=== PATIENT | female | born 1960 | race Caucasian/White ===

== ENCOUNTER 2018-08-17 08:43 | Emergency (ER) | payer OTHER ==
[~2018-08-17] VITALS: Ht 162.6 cm; Wt 79.2 kg
[2018-08-17 08:44] VITALS: BP 101/57
--- NOTE | 2018-08-17 09:00 | NUR ---
PT AMB WITH WALKER TO BED 11.
--- NOTE | 2018-08-17 09:13 | NUR ---
PATIENT PRESENTS TO ED WITH c/o hacking cough with sob and intermittent fever x 1 wk hx copd admits has stopped smoking recently---ambulatory with walker full clear speech , no tripoding .. DENIES N/V/D; SKIN IS PINK/WARM/DRY; AAOX4 WITH EVEN AND STEADY GAIT; LUNGS CLEAR BL; HR EVEN AND REGULAR; ; PATIENT STATES PAIN OF 8/10 AT THIS TIME; VSS; PATIENT POSITIONED FOR COMFORT; HOB ELEVATED; BEDRAILS UP X2; BED DOWN. ER MD MADE AWARE OF PT STATUS.
--- NOTE | 2018-08-17 09:20 | NUR ---
Patient being evaluated by physician at bedside.
--- NOTE | 2018-08-17 09:31 | NUR ---
pt to radiology via
[2018-08-17 10:22] VITALS: BP 133/68
--- NOTE | 2018-08-17 10:22 | NUR ---
Patient discharged with v/s stable. Written and verbal after care instructions given and explained. Patient alert, oriented and verbalized understanding of instructions. Ambulatory with steady gait. All questions addressed prior to discharge. ID band removed. Patient advised to follow up with PMD. Rx of augmentin/prednisone given. Patient educated on indication of medication including possible reaction and side effects. Opportunity to ask questions provided and answered.
== END 2018-08-17 10:22 | disposition home or self-care (01) ==
LOC: MED 08:43
DX: J40 Bronchitis, not specified as acute or chronic (principal); J44.9 Chronic obstructive pulmonary disease, unspecified; G20 Parkinson's disease; F17.210 Nicotine dependence, cigarettes, uncomplicated; Z86.73 Personal history of transient ischemic attack (TIA), and cerebral infarction without residual deficits
CPT/HCPCS: 71046; 81002; 81025; 99283

== ENCOUNTER 2018-10-16 22:41 | Inpatient (IN) | payer OTHER ==
[~2018-10-16] VITALS: Ht 160 cm; Wt 78.9 kg
[2018-10-16 22:41] VITALS: BP 116/61
--- NOTE | 2018-10-16 22:41 | NUR ---
PATIENT BIB BLS TO ER BED 11.
--- NOTE | 2018-10-16 22:44 | NUR ---
BIBA BLS TO ER BED 11
--- NOTE | 2018-10-16 22:45 | NUR ---
PT BIBA TO ERWITH C/O NEED OF 02 DUE TO RUNNING OUT IN HER TANKS. [facility]. PT ALSO STATED THAT SHE FEELS SOME CHEST PAIN. PT IS SAT 96 PERCENT ON RA. PT IS A/OX4. ER MD MADE AWARE OF STATUS. SAFETY MEASURES IN PLACE, BED RAILS UP X2.
--- NOTE | 2018-10-16 22:48 | NUR ---
RT AT BEDSIDE
[2018-10-16] MEDS ORDERED: ALBUTEROL SULFATE/IPRATROPIU 3 ML SOL IH ONE (23:15)
[2018-10-16 23:38] LABS: BASOPHILS % (AUTO) 0.4 % (0.0-2.0); EOSINOPHILS # (AUTO) 0.1 K/uL (0-0.4); EOSINOPHILS % (AUTO) 1.5 % (0.0-4.0); HEMATOCRIT 38.6 % (36-48); HEMOGLOBIN 13.4 g/dL (12.0-16.0); LYMPHOCYTES # (AUTO) 3.5 K/uL (2.5-16.5); LYMPHOCYTES % (AUTO) 57.4 % (20.5-51.1); MEAN CORPUSCULAR HEMOGLOBIN 34 pg (27-31); MEAN CORPUSCULAR HGB CONC 35 g/dL (33-37); MEAN CORPUSCULAR VOLUME 98.6 fL (80-94); MONOCYTES # (AUTO) 0.6 K/uL (0.8-1.0); MONOCYTES % (AUTO) 10.5 % (1.7-9.3); NEUTROPHILS # (AUTO) 1.9 K/uL (1.8-7.7); NEUTROPHILS % (AUTO) 30.2 % (42.2-75.2); PLATELET COUNT (AUTO) 239 K/uL (140-450); RED BLOOD CELL COUNT(AUTO) 3.91 MIL/uL (4.20-5.40); RED CELL DISTRIBUTION WIDTH 12.5 % (11.6-13.7); WHITE BLOOD COUNT (AUTO) 6.2 K/uL (4.8-10.8)
[2018-10-16] MEDS ORDERED: ASPIRIN 81 MG TAB.CHEW PO ONE (23:55)
[2018-10-16 23:56] LABS: ANION GAP 9.8 (8-16); CARBON DIOXIDE 30.8 mmol/L (21-32); CREATININE 0.8 mg/dL (0.6-1.3); POTASSIUM 3.6 mmol/L (3.5-5.1)
[2018-10-17 00:01] LABS: ALBUMIN 3.5 g/dL (3.4-5.0); TOTAL BILIRUBIN 0.9 mg/dL (0.0-1.0)
[2018-10-17] MEDS ORDERED: ZOLPIDEM 5 MG TAB PO PRN (01:10)
[2018-10-17] MEDS ORDERED: HYDROcodone/APAP 5/325 MG 1 TAB TAB PO PRN (01:10)
[2018-10-17] MEDS ORDERED: ONDANSETRON 4 MG/2 ML VIAL IM/IVP PRN (01:10)
[2018-10-17] MEDS ORDERED: MORPHINE SULFATE 2 MG/ML SYR IVP PRN ×2 (01:10→03:30)
[2018-10-17] MEDS ORDERED: DOCUSATE SODIUM 100 MG GELCAP PO PRN (01:10)
[2018-10-17] MEDS ORDERED: ACETAMINOPHEN 325 MG TAB PO PRN (01:10)
[2018-10-17] MEDS ORDERED: LORazepam 2 MG/ML VIAL IM/IVP PRN (01:10)
[2018-10-17] MEDS ORDERED: ALBUTEROL SULFATE/IPRATROPIU 3 ML SOL IH PRN (01:15)
[2018-10-17] MEDS ORDERED: NITROGLYCERIN 0.4 MG TAB SL PRN ×2 (01:15→03:40)
[2018-10-17] MEDS ORDERED: [UNRECOGNIZED DRUG - CODE] PO (01:22)
[2018-10-17] MEDS ORDERED: PRON INH (01:22)
[2018-10-17] MEDS ORDERED: PANT40EC PO (01:22)
[2018-10-17] MEDS ORDERED: [UNRECOGNIZED DRUG - CODE] SC (01:22)
[2018-10-17] MEDS ORDERED: [UNRECOGNIZED DRUG - CODE] IM (01:22)
[2018-10-17] MEDS ORDERED: VARE1TAB27 PO (01:22)
[2018-10-17] MEDS ORDERED: ACET-787 PO (01:22)
[2018-10-17] MEDS ORDERED: CYAN100099 IM (01:22)
[2018-10-17] MEDS ORDERED: ATOR20TA PO (01:22)
[2018-10-17] MEDS ORDERED: GABA300C PO (01:22)
[2018-10-17] MEDS ORDERED: OLAN2.5T1 PO (01:22)
[2018-10-17] MEDS ORDERED: DULO60EC PO (01:22)
[2018-10-17] MEDS ORDERED: ALBU0.0912 IH (01:22)
[2018-10-17] MEDS ORDERED: PRAZ1CAP5 PO (01:22)
[2018-10-17] MEDS ORDERED: OLAN15TA1 PO (01:22)
[2018-10-17] MEDS ORDERED: BUDE1AER2 IH (01:22)
[2018-10-17] MEDS ORDERED: [UNRECOGNIZED DRUG - CODE] TP (01:22)
[2018-10-17] MEDS ORDERED: [UNRECOGNIZED DRUG - CODE] PO (01:22)
[2018-10-17] MEDS ORDERED: MIRT15TA PO (01:22)
[2018-10-17] MEDS ORDERED: DIVA500E1 PO (01:22)
[2018-10-17] MEDS ORDERED: ASPI-1677 PO (01:22)
[2018-10-17 01:56] LABS: PROTHROMBIN TIME 9.9 secs (10.8-13.4)
--- NOTE | 2018-10-17 02:00 | NUR ---
Patient will be admitted to care of DR. JESUS. Admited to ICU . Will go to room 5. Belongings list completed. Report to SHERLY BARBOZA.
--- NOTE | 2018-10-17 02:00 | NUR ---
Pt report given to SHERLY BARBOZA IN ICU. Transfer of care at this time.VSS
[2018-10-17 02:06] LABS: PHOSPHORUS 4.1 mg/dL (2.5-4.9); THYROID STIMULATING HORMONE 2.17 uIU/mL (0.34-3.74)
--- NOTE | 2018-10-17 02:20 | NUR ---
PT ARRIVED IN THE UNIT AT 0205 VIA GURNEY FROM ER. VS STABLE. AFEBRILE. PT DENIES ANY PAIN AT THIS TIME. PT COOPERATIVE AND ABLE TO MAKE NEEDS KNOWN. DENIES ANY DISCOMFORT AT THIS TIME. PERRL. PT ANSWERS QUESTIONS APPROPRIATELY. LUNG SOUNDS CLEAR. RECEIVED PT ON OXYGEN AT 3L/MIN VIA NC. PT DENIES ANY DIFFICULTY BREATHING. RESPIRATIONS ARE EVEN AND UNLABORED. S1+S2 HEARD. SR ON MONITOR. PULSES ARE PALPABLE IN ALL EXTREMITIES. DENIES CHEST PAIN. ABDOMEN ROUND, SOFT AND NONDISTENDED. BS ACTIVE IN ALL QUADRANTS. PT STATES CHANGE IN APPETITE RECENTLY. DENIES ANY DIFFICULTY SWALLOWING. PT HAS LEFT SIDED WEAKNESS D/T PREVIOUS CVA. RECEIVED PT WITH LEFT HAND PERIPHERAL IV ACCESS 22G. LINE WAS FLUSHED BUT NO LONGER INTACT. WILL START ANOTHER IV ACCESS. PT STATES SHE HAS HER UPPER DENTURES. NO OTHER BELONGINGS REPORTED BY PT. MRSA SPECIMEN COLLECTED. CALL LIGHT HANDED TO PT AND INSTRUCTED HOW TO USE. HOB KEPT AT 30 DEGREES. BED AT LOWEST POSSIBLE POSITION. ALL SAFETY PRECAUTIONS ARE KEPT IN PLACE. WILL CONTINUE TO MONITOR PT.
--- NOTE | 2018-10-17 02:23 | NUR ---
PT WAS ASKING FOR SOME SNACKS AT THIS TIME AND WAS PROVIDED. PT WAS ABLE TO FINISH THE APPLESAUCE AND ORANGE JUICE. PT WAS VERY COOPERATIVE AND ANSWERS QUESTIONS APPROPRIATELY. WILL CONTINUE TO MONITOR PT.
[2018-10-17] MEDS: NACL 0.9% 1,000 ML IV SCH ×3 (02:30→21:36)
[2018-10-17] MEDS ORDERED: HYDROcodone/APAP 10/325 MG 1 TAB TAB PO PRN (03:05)
[2018-10-17] MEDS ORDERED: SYN.05 PO (03:34)
[2018-10-17] MEDS ORDERED: BUPR-10 PO (03:34)
[2018-10-17] MEDS ORDERED: MIRABULK PO (03:34)
--- NOTE | 2018-10-17 03:48 | NUR ---
PT IS HAVE EKG TAKEN AT BEDSIDE AT THIS TIME
[2018-10-17 04:00] VITALS: BP 99/62
--- NOTE | 2018-10-17 04:55 | NUR ---
NO CHANGE IN PT'S CONDITION AT THIS TIME. DENIES ANY PAIN. SR ON MONITOR. PT DOES NOT APPEAR TO BE EXPERIENCING ANY DISCOMFORT AT THIS TIME. ALL SAFETY PRECAUTIONS ARE IN PLACE AND CALL LIGHT WITHIN REACH.
--- NOTE | 2018-10-17 05:20 | NUR ---
ASSISTED PT TO USE THE URINAL. PT WAS HESITANT DUE TO PREVIOUS EXPERIENCE OF UNSUCCESSFUL USE OF BEDPAN. PT WAS ABLE TO USE THE BEDPAN SUCCESSFULLY AND HAD 500ML URINE OUTPUT THAT IS CLEAR AND YELLOW IN COLOR. NO ABNORMAL ODOR NOTED.
[2018-10-17] MEDS: LEVOTHYROXINE 0.05 MG TAB PO SCH (05:59)
[2018-10-17] MEDS: PANTOPRAZOLE 40 MG TABEC PO SCH (06:00)
[2018-10-17] MEDS: ALBUTEROL SULFATE/IPRATROPIU 3 ML SOL IH SCH ×3 (06:00→18:47)
--- NOTE | 2018-10-17 06:48 | NUR ---
DR. ROSE IN THE UNIT TO SEE PT. UPDATED HIM REGARDING PT'S CONDITION.
--- NOTE | 2018-10-17 07:08 | NUR ---
REPORT GIVEN TO MORNING RN, MONICA, FOR CONTINUITY OF CARE. VS STABLE AT THIS TIME. ENDORSED PT'S UPPER DENTURES.
--- NOTE | 2018-10-17 07:15 | NUR ---
RECEIVED PT FROM PM NURSE, PT SLEEPING BUT AROUSABLE, BEDSIDE MONITOR SHOWS SR-SB. ON O2 NC 3/MIN, NO S/S OF RESPIRATORY DISTRESS NOTED. LING SOUND CLEAR, ABD ROUND, SOFT, DENIES PAIN. LEFT SIDE WEAKNESS NOTED. PER PM NURSE, PM HAD HX CVA. IV TO RIGHT HAND # 22RUNNING NS AT 60 CC/HR. CALL LIGHT IN REACH, WILL CONTINUE TO MONITOR PT. PT ABLE TO MOVE ALL HER EXTREMITIES. DENIES PAIN.
[2018-10-17 07:58] LABS: BASOPHILS % (AUTO) 0.7 % (0.0-2.0); EOSINOPHILS # (AUTO) 0.1 K/uL (0-0.4); EOSINOPHILS % (AUTO) 2.3 % (0.0-4.0); HEMOGLOBIN 12.7 g/dL (12.0-16.0); LYMPHOCYTES % (AUTO) 57.6 % (20.5-51.1); MEAN CORPUSCULAR HEMOGLOBIN 34 pg (27-31); MEAN CORPUSCULAR HGB CONC 34 g/dL (33-37); MEAN CORPUSCULAR VOLUME 98.3 fL (80-94); MONOCYTES # (AUTO) 0.6 K/uL (0.8-1.0); MONOCYTES % (AUTO) 10.7 % (1.7-9.3); NEUTROPHILS # (AUTO) 1.5 K/uL (1.8-7.7); NEUTROPHILS % (AUTO) 28.7 % (42.2-75.2); PLATELET COUNT (AUTO) 232 K/uL (140-450); RED BLOOD CELL COUNT(AUTO) 3.76 MIL/uL (4.20-5.40); RED CELL DISTRIBUTION WIDTH 12.4 % (11.6-13.7); WHITE BLOOD COUNT (AUTO) 5.3 K/uL (4.8-10.8)
[2018-10-17 08:00] VITALS: BP 95/55
--- NOTE | 2018-10-17 08:17 | NUR ---
OFFERED PT BREAKFAST TRAY, PT ATE 35%. PT STATED SHE DOES NOT HAVE A GOOD APPETITE. SHE WILL TAKE A NAP.
[2018-10-17 08:24] LABS: ALBUMIN 3.3 g/dL (3.4-5.0); ANION GAP 11.5 (8-16); CARBON DIOXIDE 28.9 mmol/L (21-32); CHOL/HDL RATIO 2.6 (1-4.5); CREATININE 0.6 mg/dL (0.6-1.3); POTASSIUM 3.4 mmol/L (3.5-5.1); TOTAL BILIRUBIN 0.8 mg/dL (0.0-1.0)
[2018-10-17] MEDS: ASPIRIN 81 MG TAB.CHEW PO SCH (08:51)
[2018-10-17] MEDS: OLANZapine 2.5 MG TAB PO SCH (08:51)
[2018-10-17] MEDS: LISINOPRIL 5 MG TAB PO SCH (08:51)
[2018-10-17] MEDS: POLYETHYLENE GLYCOL 17 GM/PKT PO SCH (08:52)
[2018-10-17] MEDS: METOPROLOL 25 MG TAB PO SCH ×2 (08:53→21:36)
[2018-10-17] MEDS: CALCIUM CARB 600 MG TAB PO SCH (08:53)
[2018-10-17] MEDS: buPROPion 150 MG TABER PO SCH (08:53)
[2018-10-17] MEDS: CHOLECALCIFEROL 1,000 IU TAB PO SCH (08:54)
[2018-10-17] MEDS: DULoxetine 30 MG CAPDR PO SCH (08:54)
[2018-10-17] MEDS: oxyCODONE 5 MG TAB PO SCH ×2 (08:55→21:34)
[2018-10-17] MEDS ORDERED: buPROPion 100 MG TAB PO SCH (09:00)
[2018-10-17] MEDS ORDERED: DIVALPROEX 500 MG TABEC PO SCH (09:00)
[2018-10-17] MEDS ORDERED: NON-FORMULARY ITEM (Calcium Carbonate/Vitamin D3 (Calcium 600 + Vit D3 Tablet) 1 TAB) PO SCH (09:00)
[2018-10-17] MEDS: NICOTINE TRANSD SYS 21 MG/24 HR PATCH TD SCH (09:35)
--- NOTE | 2018-10-17 10:00 | NUR ---
OFFERED PT BEDPAN, PT HAD URINE 250 ML, CLEANED PT . PT TOLERATED WELL. NO SOB.
[2018-10-17] MEDS ORDERED: POTASSIUM CHLORIDE 10 MEQ TABER PO SCH (11:40)
[2018-10-17 12:00] VITALS: BP 97/56
[2018-10-17] MEDS ORDERED: PSYLLIUM 12.2 GM/PKT PO SCH (12:05)
--- NOTE | 2018-10-17 13:26 | NUR ---
PATIENT HAS BEEN SCREENED AND CATEGORIZED MODERATE NUTRITION RISK. PATIENT WILL BE SEEN WITHIN 3-5 DAYS OF ADMISSION. 10/20/18JABIER MONTEIRO MBA, RD
--- NOTE | 2018-10-17 14:30 | NUR ---
assisted pt to use bedside commode. pt had BM.
--- NOTE | 2018-10-17 15:15 | NUR ---
VEGETABLE CUTTER AT BEDSIDE.
[2018-10-17 16:00] VITALS: BP 91/59
--- NOTE | 2018-10-17 17:00 | NUR ---
pt resting in bed. no discomfort or sob noted.
--- NOTE | 2018-10-17 19:25 | NUR ---
report given to pm nurse kaleb. pt will be transferred to 112B by gurinder contreras
--- NOTE | 2018-10-17 19:26 | NUR ---
RECEIVED REPORT FROM DAY SHIFT NURSE MONICA-RN FROM ICU. PT ARRIVED TO UNIT VIA GURNEY. PT AOX4, ON 3L/NC WITH RIGHT HAND #22G. DISCUSSED PLAN OF CARE AND PT VERBALIZED UNDERSTANDING. NO S/S OF RESPIRATORY DISTRESS OR DISCOMFORT NOTED AT THIS TIME. BED IN LOWEST POSITION, BED BREAKS ON, BOTH SIDE RAILS UP AND FALL PRECAUTIONS IN PLACE. BEDSIDE TABLE AND CALL LIGHT ARE WITHIN REACH. WILL CONTINUE TO MONITOR.
[2018-10-17 20:00] VITALS: BP 104/44
[2018-10-17 20:26] LABS: APPEARANCE,URINE CLEAR (CLEAR); BILIRUBIN,URINE NEGATIVE (NEGATIVE); BLOOD, URINE NEGATIVE (NEGATIVE); COLOR,URINE YELLOW (YELLOW); LEUKOCYTE ESTERASE ,URINE NEGATIVE (NEGATIVE); NITRITE, URINE NEGATIVE (NEGATIVE); UGLUCOSE NEGATIVE (NEGATIVE)
[2018-10-17 20:31] LABS: BARBITURATE, URINE NEG. ng/ml (NEG <=200); BENZODIAZEPINE, URINE NEG. ng/mL (NEG <=200); CANNABINOID, URINE NEG. ng/mL (NEG <=50); COCAINE, URINE NEG. ng/mL (NEG <=300); OPIATE, URINE NEG. ng/mL (NEG <=2000); PHENCYCLIDINE SCREEN,URINE NEG. ng/mL (NEG <=25)
[2018-10-17] MEDS: DOCUSATE SODIUM 100 MG GELCAP PO SCH (21:33)
[2018-10-17] MEDS: GABAPENTIN 300 MG CAP PO SCH (21:34)
[2018-10-17] MEDS: MIRTAZAPINE 15 MG TAB PO SCH (21:34)
[2018-10-17] MEDS: OLANZapine 5 MG TAB PO SCH (21:35)
[2018-10-17] MEDS: DIVALPROEX 500 MG TABEC PO SCH (21:35)
[2018-10-17] MEDS: PRAZOSIN 1 MG CAP PO SCH (21:35)
[2018-10-17] MEDS: ATORVASTATIN 20 MG TAB PO SCH (21:36)
--- NOTE | 2018-10-17 21:46 | NUR ---
SCHEDULED MEDICATION GIVEN AND TOLERATED WELL. NO S/S OF RESPIRATORY DISTRESS OR DISCOMFORT NOTED AT THIS TIME. WILL CONTINUE TO MONITOR.
[2018-10-18] VITALS: BP 86/37
--- NOTE | 2018-10-18 | NUR ---
VITAL SIGNS TAKEN AND TOLERATED WELL. NO S/S OF RESPIRATORY DISTRESS OR DISCOMFORT NOTED AT THIS TIME. WILL CONTINUE TO MONITOR.
--- NOTE | 2018-10-18 02:00 | NUR ---
PT CONTINUES TO SLEEP IN BED. NO S/S OF RESPIRATORY DISTRESS OR DISCOMFORT NOTED AT THIS TIME. WILL CONTINUE TO MONITOR.
[2018-10-18 04:00] VITALS: BP 85/50
--- NOTE | 2018-10-18 04:00 | NUR ---
PT CONTINUES TO SLEEP IN BED. NO S/S OF RESPIRATORY DISTRESS OR DISCOMFORT NOTED AT THIS TIME. WILL CONTINUE TO MONITOR.
--- NOTE | 2018-10-18 06:00 | NUR ---
PT CONTINUES TO SLEEP IN BED. NO S/S OF RESPIRATORY DISTRESS OR DISCOMFORT NOTED AT THIS TIME. WILL CONTINUE TO MONITOR.
[2018-10-18] MEDS: PANTOPRAZOLE 40 MG TABEC PO SCH (06:41)
[2018-10-18] MEDS: LEVOTHYROXINE 0.05 MG TAB PO SCH (06:41)
--- NOTE | 2018-10-18 06:41 | NUR ---
SCHEDULED MEDICATION GIVEN AND TOLERATED WELL. NO S/S OF RESPIRATORY DISTRESS OR DISCOMFORT NOTED AT THIS TIME. WILL CONTINUE TO MONITOR.
[2018-10-18] MEDS: ALBUTEROL SULFATE/IPRATROPIU 3 ML SOL IH SCH ×3 (07:05→19:06)
--- NOTE | 2018-10-18 07:24 | NUR ---
ENDORSED PT CARE TO DAY SHIFT NURSE DEONNA FOR CONTINUITY OF CARE.
--- NOTE | 2018-10-18 07:25 | NUR ---
RECEIVED BEDSIDE REPORT FROM JABARI MAGALLON. PATIENT ON TELE MONITOR AND STANDARD PRECAUTIONS IN PLACE. PATIENT ON 3 L O2 VIA NC, NO DISTRESS NOTED. SKIN INTACT. PATIENT AMBULATES WITH ASSIST AND CONTINENT. IV ON R HAND 22 G INFUSING NS AT 60, IV ASYMPTOMATIC PATENT AND INTACT. FALL RISK PROTOCOL IN PLACE AND ASPIRATION PRECAUTIONS. BED IN LOW POSITION, CALL LIGHT WITHIN REACH, SIDE RAILS X2 UP
[2018-10-18 08:00] VITALS: BP 97/36
[2018-10-18] MEDS: METOPROLOL 25 MG TAB PO SCH ×2 (08:30→21:00)
[2018-10-18 08:37] LABS: ANION GAP 7.5 (8-16); CARBON DIOXIDE 31.5 mmol/L (21-32); CREATININE 0.7 mg/dL (0.6-1.3)
[2018-10-18 08:44] LABS: BASOPHILS % (AUTO) 0.8 % (0.0-2.0); EOSINOPHILS # (AUTO) 0.1 K/uL (0-0.4); EOSINOPHILS % (AUTO) 2.4 % (0.0-4.0); HEMATOCRIT 35.8 % (36-48); HEMOGLOBIN 12.3 g/dL (12.0-16.0); LYMPHOCYTES # (AUTO) 3.1 K/uL (2.5-16.5); LYMPHOCYTES % (AUTO) 63.3 % (20.5-51.1); MEAN CORPUSCULAR HEMOGLOBIN 34 pg (27-31); MEAN CORPUSCULAR HGB CONC 34 g/dL (33-37); MONOCYTES # (AUTO) 0.3 K/uL (0.8-1.0); MONOCYTES % (AUTO) 7.2 % (1.7-9.3); NEUTROPHILS # (AUTO) 1.3 K/uL (1.8-7.7); NEUTROPHILS % (AUTO) 26.3 % (42.2-75.2); PLATELET COUNT (AUTO) 208 K/uL (140-450); RED BLOOD CELL COUNT(AUTO) 3.62 MIL/uL (4.20-5.40); RED CELL DISTRIBUTION WIDTH 12.5 % (11.6-13.7); WHITE BLOOD COUNT (AUTO) 4.9 K/uL (4.8-10.8)
[2018-10-18] MEDS: ASPIRIN 81 MG TAB.CHEW PO SCH (08:45)
[2018-10-18] MEDS: CHOLECALCIFEROL 1,000 IU TAB PO SCH (08:47)
[2018-10-18] MEDS: oxyCODONE 5 MG TAB PO SCH ×2 (08:47→20:57)
[2018-10-18] MEDS: CALCIUM CARB 600 MG TAB PO SCH (08:48)
[2018-10-18] MEDS: DOCUSATE SODIUM 100 MG GELCAP PO SCH ×2 (08:48→20:58)
[2018-10-18] MEDS: DULoxetine 30 MG CAPDR PO SCH (08:49)
[2018-10-18] MEDS: DIVALPROEX 500 MG TABEC PO SCH ×3 (08:49→21:10)
[2018-10-18] MEDS: PSYLLIUM 12.2 GM/PKT PO SCH (08:50)
[2018-10-18] MEDS: POLYETHYLENE GLYCOL 17 GM/PKT PO SCH (08:50)
[2018-10-18] MEDS: NICOTINE TRANSD SYS 21 MG/24 HR PATCH TD SCH (08:51)
[2018-10-18] MEDS: buPROPion 150 MG TABER PO SCH (08:51)
[2018-10-18] MEDS: LISINOPRIL 5 MG TAB PO SCH (09:00)
--- NOTE | 2018-10-18 09:01 | NUR ---
ADMINISTERED SCHEDULED MEDS. PATIENT TOLERATED WELL
[2018-10-18] MEDS: OLANZapine 2.5 MG TAB PO SCH (09:16)
--- NOTE | 2018-10-18 10:32 | NUR ---
Teletypewriter Installer Note: I called and spoke with Renate from [facility] . Per Renate, [facility] is in the process of having O2 concentrator deliver to [facility]. She stated patient has sufficient portable O2 tanks to use at [facility], made aware of this. Renate reported patient ambulates with a walker and is self responsible with medical decisions. [facility]'s bulk tank driver is available Thursday-Thursday from mornings-3pm.
--- NOTE | 2018-10-18 11:28 | NUR ---
PATIENT SLEEPING, ON 3 L O2 NC, NO DISTRESS NOTED
--- NOTE | 2018-10-18 13:30 | NUR ---
PATIENT HAVING BREATHING TREATMENT AT THIS TIME
[2018-10-18 13:38] LABS: T4 (THYROXINE) 6.5 ug/dL (4.5-12.0)
[2018-10-18 16:00] VITALS: BP 108/45
--- NOTE | 2018-10-18 16:17 | NUR ---
PATIENT SLEEPING, ON 3 L O2 NC, NO DISTRESS NOTED
--- NOTE | 2018-10-18 17:23 | NUR ---
FRIEND AT BEDSIDE, ON 3 L O2 NC, NO DISTRESS NOTED
--- NOTE | 2018-10-18 18:22 | NUR ---
PATIENT EATING DINNER, ON 3 L 02 NC, NO DISTRESS NOTED
--- NOTE | 2018-10-18 19:10 | NUR ---
BEDSIDE REPORT GIVEN TO JABARI MAGALLON. PATIENT ENDORSED IN STABLE CONDITION
--- NOTE | 2018-10-18 19:11 | NUR ---
RECEIVED REPORT FROM DAY SHIFT NURSE STEWART-JABARI. PT RESTING IN BED. PT AOX4, ON 3L/NC WITH RIGHT HAND #22G. DISCUSSED PLAN OF CARE AND PT VERBALIZED UNDERSTANDING. NO S/S OF RESPIRATORY DISTRESS OR DISCOMFORT NOTED AT THIS TIME. BED IN LOWEST POSITION, BED BREAKS ON, BOTH SIDE RAILS UP AND FALL PRECAUTIONS IN PLACE. BEDSIDE TABLE AND CALL LIGHT ARE WITHIN REACH. WILL CONTINUE TO MONITOR.
[2018-10-18 20:00] VITALS: BP 97/47
--- NOTE | 2018-10-18 20:00 | NUR ---
VITAL SIGNS TAKEN AND TOLERATED WELL. NO S/S OF RESPIRATORY DISTRESS OR DISCOMFORT NOTED AT THIS TIME. WILL CONTINUE TO MONITOR.
[2018-10-18] MEDS: GABAPENTIN 300 MG CAP PO SCH (20:57)
[2018-10-18] MEDS: ATORVASTATIN 20 MG TAB PO SCH (20:58)
[2018-10-18] MEDS: MIRTAZAPINE 15 MG TAB PO SCH (20:58)
[2018-10-18] MEDS: OLANZapine 5 MG TAB PO SCH (20:58)
[2018-10-18] MEDS: PRAZOSIN 1 MG CAP PO SCH (21:00)
--- NOTE | 2018-10-18 21:02 | NUR ---
SCHEDULED MEDICATIONS GIVEN AND TOLERATED WELL. LOPRESSOR AND MINIPRESS WAS NOT GIVEN DUE TO LOW BP- 97/47, HR- 90. NO S/S OF RESPIRATORY DISTRESS OR DISCOMFORT NOTED AT THIS TIME. WILL CONTINUE TO MONITOR.
--- NOTE | 2018-10-18 23:00 | NUR ---
PT SLEEPING IN BED. NO S/S OF RESPIRATORY DISTRESS OR DISCOMFORT NOTED AT THIS TIME. WILL CONTINUE TO MONITOR.
[2018-10-19] VITALS: BP 112/62
--- NOTE | 2018-10-19 | NUR ---
VITAL SIGNS TAKEN AND TOLERATED WELL. NO S/S OF RESPIRATORY DISTRESS OR DISCOMFORT NOTED AT THIS TIME. WILL CONTINUE TO MONITOR.
--- NOTE | 2018-10-19 02:00 | NUR ---
PT CONTINUES TO SLEEP IN BED. NO S/S OF RESPIRATORY DISTRESS OR DISCOMFORT NOTED AT THIS TIME. WILL CONTINUE TO MONITOR.
[2018-10-19] MEDS: NACL 0.9% 1,000 ML IV SCH ×2 (03:08→22:00)
--- NOTE | 2018-10-19 04:00 | NUR ---
PT CONTINUES TO SLEEP IN BED. NO S/S OF RESPIRATORY DISTRESS OR DISCOMFORT NOTED AT THIS TIME. WILL CONTINUE TO MONITOR.
[2018-10-19] MEDS: PANTOPRAZOLE 40 MG TABEC PO SCH (05:53)
[2018-10-19] MEDS: LEVOTHYROXINE 0.05 MG TAB PO SCH (05:53)
--- NOTE | 2018-10-19 05:53 | NUR ---
SCHEDULED MEDICATIONS GIVEN AND TOLERATED WELL. NO S/S OF RESPIRATORY DISTRESS OR DISCOMFORT NOTED AT THIS TIME. WILL CONTINUE TO MONITOR.
[2018-10-19] MEDS: ALBUTEROL SULFATE/IPRATROPIU 3 ML SOL IH SCH ×3 (07:23→19:09)
--- NOTE | 2018-10-19 07:37 | NUR ---
ENDORSED PT CARE TO DAY SHIFT NURSE SANTINO FOR CONTINUITY OF CARE.
--- NOTE | 2018-10-19 07:37 | NUR ---
REPORT RECEIVED FROM NURSE MAGALLON PT ASLEEP, EASILY AROUSABLE TO A/O APPROPRIATE AND ABLE TO COMMUNICATE NEEDS. DENIES PAIN, DENIES SOB, CALL LIGHT AND PERSONAL ITEMS WITHIN REACH, SAFETY MEASURES IN PLACE, NO S/S OF ACUTE DISTRESS AT THIS TIME, WILL CONTINUE TO MONITOR
[2018-10-19 08:00] VITALS: BP 121/63
[2018-10-19 08:56] LABS: BASOPHILS % (AUTO) 0.4 % (0.0-2.0); EOSINOPHILS # (AUTO) 0.1 K/uL (0-0.4); EOSINOPHILS % (AUTO) 1.8 % (0.0-4.0); HEMATOCRIT 35.5 % (36-48); HEMOGLOBIN 12.2 g/dL (12.0-16.0); LYMPHOCYTES # (AUTO) 2.1 K/uL (2.5-16.5); LYMPHOCYTES % (AUTO) 29.7 % (20.5-51.1); MEAN CORPUSCULAR HEMOGLOBIN 34 pg (27-31); MEAN CORPUSCULAR HGB CONC 34 g/dL (33-37); MEAN CORPUSCULAR VOLUME 99.1 fL (80-94); MONOCYTES # (AUTO) 0.6 K/uL (0.8-1.0); MONOCYTES % (AUTO) 8.6 % (1.7-9.3); NEUTROPHILS # (AUTO) 4.3 K/uL (1.8-7.7); NEUTROPHILS % (AUTO) 59.5 % (42.2-75.2); PLATELET COUNT (AUTO) 218 K/uL (140-450); RED BLOOD CELL COUNT(AUTO) 3.58 MIL/uL (4.20-5.40); RED CELL DISTRIBUTION WIDTH 12.6 % (11.6-13.7); WHITE BLOOD COUNT (AUTO) 7.2 K/uL (4.8-10.8)
[2018-10-19] MEDS: PSYLLIUM 12.2 GM/PKT PO SCH ×2 (09:00→09:36)
[2018-10-19] MEDS: buPROPion 150 MG TABER PO SCH ×2 (09:00→09:37)
[2018-10-19] MEDS: CALCIUM CARB 600 MG TAB PO SCH (09:34)
[2018-10-19] MEDS: ASPIRIN 81 MG TAB.CHEW PO SCH (09:34)
[2018-10-19] MEDS: DOCUSATE SODIUM 100 MG GELCAP PO SCH ×2 (09:35→21:30)
[2018-10-19] MEDS: oxyCODONE 5 MG TAB PO SCH ×2 (09:36→21:00)
[2018-10-19] MEDS: METOPROLOL 25 MG TAB PO SCH ×2 (09:36→21:00)
[2018-10-19] MEDS: POLYETHYLENE GLYCOL 17 GM/PKT PO SCH (09:36)
[2018-10-19] MEDS: LISINOPRIL 5 MG TAB PO SCH (09:37)
[2018-10-19] MEDS: NICOTINE TRANSD SYS 21 MG/24 HR PATCH TD SCH (09:37)
[2018-10-19] MEDS: OLANZapine 2.5 MG TAB PO SCH (09:37)
[2018-10-19] MEDS: CHOLECALCIFEROL 1,000 IU TAB PO SCH (09:37)
[2018-10-19] MEDS: DULoxetine 30 MG CAPDR PO SCH (09:39)
[2018-10-19 09:52] LABS: ANION GAP 11.1 (8-16); CARBON DIOXIDE 29.3 mmol/L (21-32); CREATININE 0.7 mg/dL (0.6-1.3); POTASSIUM 4.4 mmol/L (3.5-5.1)
--- NOTE | 2018-10-19 10:30 | NUR ---
PT REMAINS A/O APPROPRIATE AND ABLE TO COMMUNICATE NEEDS, SPOUSE AT BEDSIDE. DENIES PAIN, DENIES SOB, CALL LIGHT AND PERSONAL ITEMS WITHIN REACH, SAFETY MEASURES IN PLACE, NO S/S OF ACUTE DISTRESS AT THIS TIME, WILL CONTINUE TO MONITOR
--- NOTE | 2018-10-19 13:00 | NUR ---
PT SLEEPING EASILY AROUSABLE BY VERBAL STIMULI TO A/O AND ABLE TO COMMUNICATE NEEDS. PT DENIES PAIN, DENIES SOB, CALL LIGHT AND PERSONAL ITEMS WITHIN REACH, SAFETY MEASURES IN PLACE, NO S/S OF ACUTE DISTRESS AT THIS TIME, WILL CONTINUE TO MONITOR
--- NOTE | 2018-10-19 13:58 | NUR ---
Event Host Note: I called and spoke with Sonya from [facility] , she stated Renate from their facility is not available today. Per Sonya, she will contact [facility] and ask when home O2 concentrator will be delivered to [facility] and call me back and let me know.
[2018-10-19 16:00] VITALS: BP 100/52
--- NOTE | 2018-10-19 16:00 | NUR ---
PT REMAINS A/O APPROPRIATE AND ABLE TO COMMUNICATE NEEDS. DENIES PAIN, DENIES SOB. PT AMBULATORY W 1 PERSON ASSIST. CALL LIGHT AND PERSONAL ITEMS WITHIN REACH, SAFETY MEASURES IN PLACE, NO S/S OF ACUTE DISTRESS AT THIS TIME, WILL CONTINUE TO MONITOR.
--- NOTE | 2018-10-19 19:30 | NUR ---
REPORT ENDORSED TO ONCOMING NURSE NAVA. PT REMAINS A/O APPROPRIATE AND ABLE TO COMMUNICATE NEEDS. CALL LIGHT, PERSONAL ITEMS WITHIN REACH, SAFETY MEASURES IN PLACE, NO S/S OF ACUTE DISTRESS AT THIS TIME.
--- NOTE | 2018-10-19 20:00 | NUR ---
SEEN PT APPEARS SLEEPY BUT EASILY AROUSABLE. PT ORIENTEDX4. INITIAL ASSESSMENT DONE. VITAL SIGNS CHECKED. PT DENIES ANY PAIN AT THIS TIME. PLAN OF CARE DISCUSSED. PT VERBALIZED UNDERSTANDING. SAFETY REINFORCED. BED ALARM ON. CALL LIGHT W/IN REACH.
[2018-10-19 21:27] VITALS: BP 100/42
[2018-10-19] MEDS: DIVALPROEX 500 MG TABEC PO SCH (21:29)
[2018-10-19] MEDS: GABAPENTIN 300 MG CAP PO SCH (21:30)
[2018-10-19] MEDS: MIRTAZAPINE 15 MG TAB PO SCH (21:30)
[2018-10-19] MEDS: ATORVASTATIN 20 MG TAB PO SCH (21:30)
--- NOTE | 2018-10-19 21:30 | NUR ---
SEEN PT SLEEPING BUT EASILY AWAKEN. MEDICATIONS GIVEN W/ TEACHINGS. PT VERBALIZED UNDERSTANDING. PT TOLERATED MEDS WELL. PT DENIES ANY PAIN AT THIS TIME. CALL LIGHT W/IN REACH. WILL CONTINUE TO MONITOR.
[2018-10-19] MEDS: PRAZOSIN 1 MG CAP PO SCH (21:31)
[2018-10-19] MEDS: OLANZapine 5 MG TAB PO SCH (21:31)
--- NOTE | 2018-10-20 00:30 | NUR ---
SEEN PT SLEEPING SOUNDLY. IVF INFUSING WELL. CALL LIGHT W/IN REACH.
--- NOTE | 2018-10-20 02:30 | NUR ---
SEEN PT SLEEPING COMFORTABLY. IVF INFUSING WELL. CALL LIGHT W/IN REACH. BED ALARM ON.
[2018-10-20 04:35] VITALS: BP 101/49
--- NOTE | 2018-10-20 04:40 | NUR ---
SEEN PT SLEEPING SOUNDLY. PT AROUSABLE TO MOVEMENT AND SHAKING. VITAL SIGNS CHECKED. ASKED PT IF SHE'S WET. PT DENIES. PT KEPT COMFORTABLE. CALL LIGHT W/IN REACH.
[2018-10-20] MEDS: NACL 0.9% 1,000 ML IV SCH (05:02)
[2018-10-20] MEDS: LEVOTHYROXINE 0.05 MG TAB PO SCH (06:35)
[2018-10-20] MEDS: PANTOPRAZOLE 40 MG TABEC PO SCH (06:35)
--- NOTE | 2018-10-20 06:38 | NUR ---
SEEN PT SO SLEEPY BUT AROUSABLE. AWAKEN BY SHAKING. PT GOT ANNOYED AND SAID "DON'T SHAKE ME LIKE THAT". INFORMED PT THAT SHE NEEDS TO BE FULLY AWAKE TO TAKE HER PILL. PT VERBALIZED UNDERSTANDING AND WOKE UP. SAFETY REINFORCED.
--- NOTE | 2018-10-20 07:00 | NUR ---
GAVE BED SIDE REPORT TO BIOSOLIDS MANAGEMENT TECHNICIAN RN, PT ON 2L NC IN NO RESPIRATORY DISTRESS, NO PAIN, AWAKE AND ALERT, BED LOW, CALL LIGHT WITHIN REACH Addendum: 10/20/18 at 1921 by Ellen Loyd RN PLEASE DISCARD THIS NOTE
--- NOTE | 2018-10-20 07:01 | NUR ---
WILL ENDORSE CARE TO DAYSHIFT NURSE.
--- NOTE | 2018-10-20 07:02 | NUR ---
RECEIVED BED SIDE REPORT FROM VP DIGITAL MARKETING SOCIAL MEDIA AND CRM RN, PT ASLEEP, ON RA, IN NO RESPIRATORY DISTRESS, DIRECTOR OF PLACEMENT AT BEDSIDE, IV R HAND 20G RUNNING 60ML/HR, BED LOW, ASPIRATION PRECAUTION SIGN POSTED, FALL RISK, FALL RISK SIGN POSTED, CALL LIGHT WITHIN REACH, WILL CONTINUE TO MONITOR Addendum: 10/20/18 at 0924 by Ellen Loyd RN PT ON 3L NC
[2018-10-20] MEDS: ALBUTEROL SULFATE/IPRATROPIU 3 ML SOL IH SCH ×3 (07:33→19:08)
--- NOTE | 2018-10-20 07:35 | NUR ---
PT REFUSED HHN TX. NO SOB OR DISTRESS NOTED. CLEAR BREATH SOUNDS. SPO2 96% ON ROOM AIR. WILL CONTINUE TO MONITOR.
[2018-10-20 08:20] LABS: BASOPHILS % (AUTO) 0.6 % (0.0-2.0); EOSINOPHILS # (AUTO) 0.1 K/uL (0-0.4); EOSINOPHILS % (AUTO) 1.8 % (0.0-4.0); HEMATOCRIT 32.6 % (36-48); HEMOGLOBIN 11.3 g/dL (12.0-16.0); LYMPHOCYTES # (AUTO) 2.1 K/uL (2.5-16.5); LYMPHOCYTES % (AUTO) 46.5 % (20.5-51.1); MEAN CORPUSCULAR HEMOGLOBIN 34 pg (27-31); MEAN CORPUSCULAR HGB CONC 35 g/dL (33-37); MEAN CORPUSCULAR VOLUME 99.2 fL (80-94); MONOCYTES # (AUTO) 0.3 K/uL (0.8-1.0); MONOCYTES % (AUTO) 7.6 % (1.7-9.3); NEUTROPHILS % (AUTO) 43.5 % (42.2-75.2); PLATELET COUNT (AUTO) 198 K/uL (140-450); RED BLOOD CELL COUNT(AUTO) 3.29 MIL/uL (4.20-5.40); RED CELL DISTRIBUTION WIDTH 12.4 % (11.6-13.7); WHITE BLOOD COUNT (AUTO) 4.6 K/uL (4.8-10.8)
[2018-10-20 08:33] LABS: ANION GAP 7.1 (8-16); CARBON DIOXIDE 33.9 mmol/L (21-32); CREATININE 0.6 mg/dL (0.6-1.3)
[2018-10-20] MEDS: METOPROLOL 25 MG TAB PO SCH ×2 (09:00→20:34)
[2018-10-20] MEDS: LISINOPRIL 5 MG TAB PO SCH (09:00)
[2018-10-20] MEDS: oxyCODONE 5 MG TAB PO SCH ×2 (09:00→20:36)
--- NOTE | 2018-10-20 09:00 | NUR ---
Technical Internship Note: I called and spoke with credit control administrator Karen Burt from [facility] to obtain an update on delivery of O2 concentrator. I explained to her that Renate from [facility] had told me [facility] was in process of having O2 concentrator deliver to [facility]. Per Karen Burt, she was not aware patient was on oxygen at their facility and referred me to speak with Public Health Nutritionist Gomez from [facility] . I called Gomez, no answer, left message. Addendum: 10/20/18 at 1504 by Terrie Goodson SS I left detailed messages in regards to O2 concentrator and plan to discharge patient back to [facility] for LOBO [facility] from [facility].
[2018-10-20] MEDS: POLYETHYLENE GLYCOL 17 GM/PKT PO SCH (09:25)
[2018-10-20] MEDS: buPROPion 150 MG TABER PO SCH (09:26)
[2018-10-20] MEDS: CHOLECALCIFEROL 1,000 IU TAB PO SCH (09:26)
[2018-10-20] MEDS: DIVALPROEX 500 MG TABEC PO SCH ×2 (09:26→20:41)
[2018-10-20] MEDS: OLANZapine 2.5 MG TAB PO SCH (09:27)
[2018-10-20] MEDS: CALCIUM CARB 600 MG TAB PO SCH (09:27)
[2018-10-20] MEDS: DOCUSATE SODIUM 100 MG GELCAP PO SCH ×2 (09:27→20:35)
[2018-10-20] MEDS: PSYLLIUM 12.2 GM/PKT PO SCH (09:28)
[2018-10-20] MEDS: ASPIRIN 81 MG TAB.CHEW PO SCH (09:29)
[2018-10-20] MEDS: NICOTINE TRANSD SYS 21 MG/24 HR PATCH TD SCH (09:30)
[2018-10-20] MEDS: DULoxetine 30 MG CAPDR PO SCH (09:35)
--- NOTE | 2018-10-20 09:41 | NUR ---
GAVE PT AM MEDS, TOLERATED WELL, APPLIED NICOTINE PATCH ON THE RIGHT UPPER ARM, DATED, TIMED AND WROTE INITIALS, PT MADE AWARE THAT SHE WILL GO HOME WITH O2 AND BE DISCHARGED TODAY, BED LOW, CALL LIGHT WITHIN REACH, WILL CONTINUE TO MONITOR
--- NOTE | 2018-10-20 09:47 | NUR ---
HELD PAIN MED AND BP MED BECAUSE BP WAS ON THE LOW SIDE
--- NOTE | 2018-10-20 11:43 | NUR ---
CALLED [facility] ABOUT O2 CONCENTRATOR DELIVERY. THEY SAID [facility] ALREADY CALLED THIS MORNING AROUND 9AM. [facility] DOES NOT ARRANGE THE O2.
--- NOTE | 2018-10-20 12:00 | NUR ---
ASSISTED PT TO RESTROOM, PT STATED SHE FELT SOB W/O NC, REAPPLIED NC AT 2L, PT O2 97% IN NO RESPIRATORY DISTRESS, WILL CONTINUE TO MONITOR
--- NOTE | 2018-10-20 13:01 | NUR ---
PT MADE AWARE ABOUT SS CALLING [facility] ABOUT O2, WILL CONTINUE TO WAIT FOR [facility] PHONE CALL
--- NOTE | 2018-10-20 14:53 | NUR ---
Evaporator Supervisor Note: I have been contacting Rides Attendant Gomez from [facility] all throughout day, she has not answered, have left several messages regarding O2 concentrator.
--- NOTE | 2018-10-20 15:10 | NUR ---
PT RESTING COMFORTABLY IN BED, ON 2L NC IN NO RESPIRATORY DISTRESS, DENIES PAIN, HAS BEEN ASKING IF [facility] HAS CALLED BACK CONCERNING O2, MADE PT AWARE THAT [facility] HAS NOT CALLED, WILL CONTINUE TO MONITOR
--- NOTE | 2018-10-20 15:39 | NUR ---
Medical Videographer Note: I called and spoke with Sofia from [facility] , she stated patient has two unused portable O2 tanks at their facility and stated [facility] had delivered portable O2 tanks to their facility. I called and spoke Paris at [facility], she stated they delivered an O2 concentrator to [facility] on January 2017. She reported patient should still have concentrator at [facility]. I called Sofia from [facility] and requested her to please check patient's room to see if there is a concentrator there. Sofia checked and she told me patient has an oxygen concentrator in her room at [facility], made aware. Addendum: 10/20/18 at 1635 by Terrie Goodson SS Per Sofia from [facility], concentrator is working properly. Per Paris from [facility], one of their staff members will go to [facility] to inspect concentrator tomorrow.
[2018-10-20 16:00] VITALS: BP 140/74
--- NOTE | 2018-10-20 16:15 | NUR ---
PT RESTING COMFORTABLY IN BED, CALL LIGHT WITHIN REACH, BED LOW, WILL CONTINUE TO MONITOR
--- NOTE | 2018-10-20 17:26 | NUR ---
[facility] ARRANGED FOR WHEELCHAIR WEAVER NEEDLE LOOM 10PM TO [facility]. PER RENEE.
--- NOTE | 2018-10-20 17:30 | NUR ---
CALLED [facility], ASKED ABOUT O2 CONCENTRATION DELIVERY, THEY SAID NOT YET, BUT THERE IS ONE O2 CONCENTRATOR IN PT'S ROOM, ASKED IF IT'S FUNCTIONAL. THEY SAID YES, BUT WILL LET THE MEDICATION NURSE CHECK AGAIN TOMORROW TO MAKE SURE.
--- NOTE | 2018-10-20 18:40 | NUR ---
PT'S CAME, STATED THE NEW OXYGEN CONCENTRATION HAS BEEN DELIVERED 45 MIN AGO.
--- NOTE | 2018-10-20 19:05 | NUR ---
GAVE BED SIDE REPORT TO AOC AIRSPACE CONTROL OFFICER RN, PT ON 2L NC IN NO RESPIRATORY DISTRESS, NO PAIN, AWAKE AND ALERT, BED LOW, CALL LIGHT WITHIN REACH
--- NOTE | 2018-10-20 19:06 | NUR ---
RECEIVED PT IN STABLE CONDITION FROM AM NURSE. PT IS AWAKE,ALERT AND ORIENTED X4. WITH NO RESPIRATORY DISTRESS NOTED. ON O22L.NC. DENIES ANY PAIN AT THIS TIME. AMBULATORY TO THE BATHROOM. FOR DC TO [facility] TO NIGHT. ALL DISCHARGE PAPERS ALREADY SIGNED BY PT. BED ON LOWEST POSITION. SIDE RAILS UP X2. CALL LIGHT PLACED WITHIN EASY REACH. WILL CONTINUE TO MONITOR.
[2018-10-20 20:00] VITALS: BP 133/50
--- NOTE | 2018-10-20 20:01 | NUR ---
[facility] staff called and stated that oxygen concentrator has been delivered to the facility [facility]
--- NOTE | 2018-10-20 20:10 | NUR ---
ASSISTED TO BATHROOM BY JAVA TECH LEAD. NO SOB NOTED. WILL CONTINUE TO MONITOR.
[2018-10-20] MEDS: PRAZOSIN 1 MG CAP PO SCH (20:35)
[2018-10-20] MEDS: ATORVASTATIN 20 MG TAB PO SCH (20:37)
[2018-10-20] MEDS: MIRTAZAPINE 15 MG TAB PO SCH (20:37)
[2018-10-20] MEDS: GABAPENTIN 300 MG CAP PO SCH (20:37)
[2018-10-20] MEDS: OLANZapine 5 MG TAB PO SCH (20:37)
--- NOTE | 2018-10-20 21:30 | NUR ---
PT ASSISTED TO CHANGE FROM HOSPITAL GOWN TO OWN CLOTHES PER REQUEST. PT PUT BACK ON O22L/NC. NO SOB NOTED.
--- NOTE | 2018-10-20 22:34 | NUR ---
[facility] TRANSPOR[facility] HERE WITH WHEELCHAIR AND PORTABLE O2 TANK. PT DC'D WITH ALL PERSONAL BELONGINGS AND ALL DC PAPERS . GIVEN TO TRANSPORTER . PT VERBALIZED UNDERSTANDING . PT DISCHARGE IN STABLE CONDITION.
== END 2018-10-20 22:35 | DRG 205 ==
LOC: MED 22:41 → MIC 10-17 01:08 → MTU 10-17 19:35
PROVIDERS: ADMIT General Practice; ATTEND General Practice
DX: M94.0 Chondrocostal junction syndrome [Tietze] (principal); J96.00 Acute respiratory failure, unspecified whether with hypoxia or hypercapnia; E44.1 Mild protein-calorie malnutrition; G35 Multiple sclerosis; K21.9 Gastro-esophageal reflux disease without esophagitis; E87.6 Hypokalemia; Z68.31 Body mass index [BMI] 31.0-31.9, adult; E66.9 Obesity, unspecified; G40.909 Epilepsy, unspecified, not intractable, without status epilepticus; F20.9 Schizophrenia, unspecified; F31.9 Bipolar disorder, unspecified; G89.4 Chronic pain syndrome; E03.9 Hypothyroidism, unspecified; F43.10 Post-traumatic stress disorder, unspecified; E78.5 Hyperlipidemia, unspecified; M85.80 Other specified disorders of bone density and structure, unspecified site; J44.9 Chronic obstructive pulmonary disease, unspecified; D64.9 Anemia, unspecified; Z71.3 Dietary counseling and surveillance; Z79.899 Other long term (current) drug therapy; Z86.73 Personal history of transient ischemic attack (TIA), and cerebral infarction without residual deficits; Z87.891 Personal history of nicotine dependence; Z90.49 Acquired absence of other specified parts of digestive tract
CPT/HCPCS: 36415; 36600; 71045; 80048; 80053; 80305; 81003; 82803; 83036; 83735; 83880; 84100; 84134; 84436; 84443; 84484; 85025; 85610; 85730; 87081; 87804; 93005; 94640; 97110; 97116; 97530; 99285; J1644; J7030; J7620; Q0092

== ENCOUNTER 2019-01-22 09:03 | Emergency (ER) | payer OTHER ==
[~2019-01-22] VITALS: Ht 160 cm; Wt 82.1 kg
[~2019-01-22 09:03] MED LIST: ACET-787 PO; ALBU0.0912 IH; ASPI-1677 PO; ATOR20TA PO; BUDE1AER2 IH; BUPR-10 PO; CYAN100099 IM; DIVA500E1 PO; DULO60EC PO; GABA300C PO; MIRABULK PO; MIRT15TA PO; OLAN15TA1 PO; OLAN2.5T1 PO; PANT40EC PO; PRAZ1CAP5 PO; PRON INH; SYN.05 PO; VARE1TAB27 PO; [UNRECOGNIZED DRUG - CODE] IM; [UNRECOGNIZED DRUG - CODE] PO; [UNRECOGNIZED DRUG - CODE] PO; [UNRECOGNIZED DRUG - CODE] SC; [UNRECOGNIZED DRUG - CODE] TP
[2019-01-22 09:07] VITALS: BP 120/65
[2019-01-22] MEDS ORDERED: HYDROcodone/APAP 10/325 MG 1 TAB TAB PO ONE (09:25)
[2019-01-22] MEDS ORDERED: CYCLOBENZAPRINE 10 MG TAB PO ONE (10:35)
[2019-01-22 10:48] VITALS: BP 118/62
== END 2019-01-22 10:48 | disposition home or self-care (01) ==
LOC: MED 09:03
DX: M25.512 Pain in left shoulder (principal); M79.642 Pain in left hand; J44.9 Chronic obstructive pulmonary disease, unspecified; Z86.73 Personal history of transient ischemic attack (TIA), and cerebral infarction without residual deficits; Z79.82 Long term (current) use of aspirin; Z79.899 Other long term (current) drug therapy; W18.30XA Fall on same level, unspecified, initial encounter; Y93.89 Activity, other specified; Y92.89 Other specified places as the place of occurrence of the external cause; Y99.8 Other external cause status
CPT/HCPCS: 73030; 73130; 99283

== ENCOUNTER 2019-02-14 07:29 | Emergency (ER) | payer OTHER ==
[~2019-02-14] VITALS: Ht 162.6 cm; Wt 84.0 kg
[2019-02-14 07:43] VITALS: BP 138/84
--- NOTE | 2019-02-14 07:49 | NUR ---
PT AMBULATED TO LOBBY AT THIS TIME W/ VSS.
--- NOTE | 2019-02-14 08:13 | NUR ---
PT TO ER BED 11
--- NOTE | 2019-02-14 08:16 | NUR ---
Patient returned from XRAY. RN re-evaluating patient at bedside.
--- NOTE | 2019-02-14 08:44 | NUR ---
Patient being evaluated by Dr. Carballo at bedside.
--- NOTE | 2019-02-14 08:48 | NUR ---
Pt presents to ED with complaints of right thumb pain since last night. Pt states that she was taking off her jacket and her finger got caught and was hyper extended, pt states "it got stuck like that so i yanked it really hard and put it back into place." Patient has mild swelling to thumb, no discoloration. CMS intact. Awake and alert x4. Clear speech. No deformity noted.
[2019-02-14] MEDS ORDERED: IBUPROFEN 400 MG TAB PO ONE (08:50)
[2019-02-14 09:04] VITALS: BP 127/79
== END 2019-02-14 09:06 | disposition home or self-care (01) ==
LOC: MED 07:29
DX: S69.91XA Unspecified injury of right wrist, hand and finger(s), initial encounter (principal); F17.200 Nicotine dependence, unspecified, uncomplicated; I10 Essential (primary) hypertension; J45.909 Unspecified asthma, uncomplicated; J44.9 Chronic obstructive pulmonary disease, unspecified; Z86.73 Personal history of transient ischemic attack (TIA), and cerebral infarction without residual deficits; Z90.49 Acquired absence of other specified parts of digestive tract; Z79.899 Other long term (current) drug therapy; Z79.51 Long term (current) use of inhaled steroids; Z79.891 Long term (current) use of opiate analgesic; Z79.82 Long term (current) use of aspirin; Z79.84 Long term (current) use of oral hypoglycemic drugs; X58.XXXA Exposure to other specified factors, initial encounter; Y92.89 Other specified places as the place of occurrence of the external cause; Y93.89 Activity, other specified; Y99.8 Other external cause status
CPT/HCPCS: 73140; 99283

== ENCOUNTER 2019-04-01 02:12 | Emergency (ER) | payer OTHER ==
[~2019-04-01] VITALS: Ht 160 cm; Wt 79.4 kg
--- NOTE | 2019-04-01 02:12 | NUR ---
PT BIBA BLS. TAKEN TO BED 9
[2019-04-01 02:13] VITALS: BP 106/59
--- NOTE | 2019-04-01 02:15 | NUR ---
59Y FEMALE, BIBA FROM [facility] C/O HEADACHE AND LT HIP PAIN 8/10 S/P FALL AT A PATIO AROUND 0100HR. PT HAD LOC, REGAINED CONCIOUSNESS AT 0145. PT AAOX4, RR EVEN UNLABORED, GCS 15, NO VISIBLE TRAUMA ON HEAD. EDMD MADE AWARE. BED LOCKED IN LOWEST POSITION. SIDERAILS UPX2. HX- 2 CVAS, MS, COPD, EMPHYSEMA, ASHTMA, THYROID PROBLEMS NKA
--- NOTE | 2019-04-01 02:22 | NUR ---
Dr. George examining patient.
[2019-04-01] MEDS ORDERED: MORPHINE SULFATE 4 MG/ML SYR IM ONE (02:30)
--- NOTE | 2019-04-01 02:49 | NUR ---
PT RETURN FROM CT
[2019-04-01 05:25] VITALS: BP 130/70
--- NOTE | 2019-04-01 05:25 | NUR ---
Patient discharged with v/s stable. Written and verbal after care instructions given and explained. Patient alert, oriented and verbalized understanding of instructions. All questions addressed prior to discharge. ID band removed. Patient advised to follow up with PMD. Rx of MOTRIN 800MG ANED NORCO 5-325MG given. Patient educated on indication of medication including possible reaction and side effects. Opportunity to ask questions provided and answered. PT PROVIDED TAXI VOUCHER, CALLED [facility] TO INFORM PATIENT ARRIVAL TO THEIR FACILITY BUT NO ANSWER. PT AMBULATORY ASSISTED TO TAXI IN STABLE CONDITION.
== END 2019-04-01 05:25 | disposition home or self-care (01) ==
LOC: MED 02:12
DX: S06.9X2A Unspecified intracranial injury with loss of consciousness of 31 minutes to 59 minutes, initial encounter (principal); S70.02XA Contusion of left hip, initial encounter; R55 Syncope and collapse; J45.909 Unspecified asthma, uncomplicated; J44.9 Chronic obstructive pulmonary disease, unspecified; F17.200 Nicotine dependence, unspecified, uncomplicated; Z90.49 Acquired absence of other specified parts of digestive tract; Z98.890 Other specified postprocedural states; Z86.73 Personal history of transient ischemic attack (TIA), and cerebral infarction without residual deficits; Z79.82 Long term (current) use of aspirin; Z79.899 Other long term (current) drug therapy; W19.XXXA Unspecified fall, initial encounter; Y93.89 Activity, other specified; Y92.89 Other specified places as the place of occurrence of the external cause; Y99.8 Other external cause status
CPT/HCPCS: 70450; 96372; 99284; J2270

== ENCOUNTER 2019-08-21 22:10 | Emergency (ER) | payer OTHER ==
[~2019-08-21] VITALS: Ht 160 cm; Wt 63.5 kg
[2019-08-21 22:10] VITALS: BP 106/73
[~2019-08-21 22:10] MED LIST changes: -ASPI-1677 PO; +ASPI-1884 PO
--- NOTE | 2019-08-21 22:10 | NUR ---
BIBA TO ER BED 1
--- NOTE | 2019-08-21 22:20 | NUR ---
59 YEAR OLD FEMALE BIBA FROM [facility] COMPLAINS OF LIGHTHEADEDNESS AND DIZZINESS X 1 HOUR AGO. PATIENT STATES THAT SHE DENIES ANY TRAUMA AND IT STARTED SUDDENLY. PATIENT AOX4, BREATHING EVEN AND UNLABORED, SKIN WARM AND DRY. BS 117. BED IN LOWEST POSITION, LOCKED, BED RAIL UPX1. HR 77, SPOW 96, RR 17, BP 116/60. ERMD AWARE OF PT STATUS PMH - COPD, SCHIZOAFFECTIVE DISORDER, MS, ANEMIA ALLERGIES - NKA
[2019-08-21] MEDS ORDERED: NACL 0.9% 500 ML IV ONE (22:30)
--- NOTE | 2019-08-21 22:40 | NUR ---
EKG PERFORMED AT BEDSIDE WITH RN PRESENT
[2019-08-21 22:52] LABS: BASOPHILS # (AUTO) 0.1 K/uL (0.00-0.22); BASOPHILS % (AUTO) 1.1 % (0.0-2.0); EOSINOPHILS # (AUTO) 0.2 K/uL (0-0.4); EOSINOPHILS % (AUTO) 2.8 % (0.0-4.0); HEMATOCRIT 40.6 % (36-48); HEMOGLOBIN 14.4 g/dL (12.0-16.0); LYMPHOCYTES % (AUTO) 52.1 % (20.5-51.1); MEAN CORPUSCULAR HEMOGLOBIN 34 pg (27-31); MEAN CORPUSCULAR HGB CONC 35 g/dL (33-37); MEAN CORPUSCULAR VOLUME 97.2 fL (80-94); MONOCYTES # (AUTO) 0.4 K/uL (0.8-1.0); MONOCYTES % (AUTO) 7.4 % (1.7-9.3); NEUTROPHILS # (AUTO) 2.1 K/uL (1.8-7.7); NEUTROPHILS % (AUTO) 36.6 % (42.2-75.2); PLATELET COUNT (AUTO) 315 K/uL (140-450); RED BLOOD CELL COUNT(AUTO) 4.17 MIL/uL (4.20-5.40); RED CELL DISTRIBUTION WIDTH 12.9 % (11.6-13.7); WHITE BLOOD COUNT (AUTO) 5.7 K/uL (4.8-10.8)
[2019-08-21 22:59] LABS: APPEARANCE,URINE CLEAR (CLEAR); BILIRUBIN,URINE NEGATIVE (NEGATIVE); BLOOD, URINE NEGATIVE (NEGATIVE); COLOR,URINE YELLOW (YELLOW); LEUKOCYTE ESTERASE ,URINE 1+ (NEGATIVE); NITRITE, URINE POSITIVE (NEGATIVE); PH,URINE 5.5 (5.0-9.0); UGLUCOSE NEGATIVE (NEGATIVE)
[2019-08-21 23:07] LABS: ALBUMIN 4.1 g/dL (3.4-5.0); ANION GAP 10.7 (8-16); CARBON DIOXIDE 29.5 mmol/L (21-32); CREATININE 0.8 mg/dL (0.6-1.3); POTASSIUM 3.2 mmol/L (3.5-5.1); TOTAL BILIRUBIN 0.6 mg/dL (0.0-1.0)
[2019-08-21 23:14] LABS: RBC,URINE 0-5 /HPF (0-5)
--- NOTE | 2019-08-22 | NUR ---
PATIENT ALERT AND AWAKE, BREATHING EVEN AND UNLABORED
[2019-08-22 00:55] VITALS: BP 124/64
--- NOTE | 2019-08-22 00:55 | NUR ---
Patient discharged with v/s stable. Written and verbal after care instructions about urinary tract infections given and explained. Patient alert, oriented and verbalized understanding of instructions. Wheelchair assisted discharge with . All questions addressed prior to discharge. ID band removed. Patient advised to follow up with PMD. Rx of keflex given. Patient educated on indication of medication including possible reaction and side effects. Opportunity to ask questions provided and answered.
--- NOTE | 2019-08-22 08:32 | NUR ---
Late entry. Confirmed with RN that 0.9 NS IV completed at 2350
== END 2019-08-22 00:55 | disposition home or self-care (01) ==
LOC: MED 22:10
DX: N39.0 Urinary tract infection, site not specified (principal); J45.909 Unspecified asthma, uncomplicated; J44.9 Chronic obstructive pulmonary disease, unspecified; E07.9 Disorder of thyroid, unspecified; F17.210 Nicotine dependence, cigarettes, uncomplicated; Z86.73 Personal history of transient ischemic attack (TIA), and cerebral infarction without residual deficits; Z90.49 Acquired absence of other specified parts of digestive tract; Z98.890 Other specified postprocedural states; Z79.82 Long term (current) use of aspirin; Z79.899 Other long term (current) drug therapy
CPT/HCPCS: 36415; 70450; 80053; 81001; 85025; 87086; 93005; 96360; 99285; J7030

== ENCOUNTER 2020-03-16 22:45 | Emergency (ER) | payer OTHER, MEDICAID ==
[~2020-03-16] VITALS: Ht 167.6 cm; Wt 75.3 kg
[~2020-03-16 22:45] MED LIST changes: -ACET-787 PO; +HYDR-5191 PO
[2020-03-16] MEDS ORDERED: fentaNYL citrate 0.05 MG/ML VIAL IVP ONE ×2 (22:55→23:40)
[2020-03-16 23:00] VITALS: BP 137/83
[2020-03-17] MEDS ORDERED: MORPHINE SULFATE 4 MG/ML SYR IVP ONE (01:30)
[2020-03-17] MEDS ORDERED: ONDANSETRON 4 MG/2 ML VIAL IVP ONE (01:30)
[2020-03-17] MEDS ORDERED: HYDROcodone/APAP 5/325 MG 1 TAB TAB PO ONE ×2 (03:50→08:00)
[2020-03-17 09:17] VITALS: BP 130/72
== END 2020-03-17 09:17 | disposition home or self-care (01) ==
LOC: MED 22:45
DX: S62.101A Fracture of unspecified carpal bone, right wrist, initial encounter for closed fracture (principal); J44.9 Chronic obstructive pulmonary disease, unspecified; E07.9 Disorder of thyroid, unspecified; Z86.73 Personal history of transient ischemic attack (TIA), and cerebral infarction without residual deficits; X58.XXXA Exposure to other specified factors, initial encounter; Y93.89 Activity, other specified; Y92.89 Other specified places as the place of occurrence of the external cause; Y99.8 Other external cause status
CPT/HCPCS: 29125; 73110; 96374; 96375; 96376; 99285; J2270; J2405; J3010; Q0092

== ENCOUNTER 2021-05-26 17:59 | Emergency (ER) | payer OTHER, MEDICAID ==
[~2021-05-26] VITALS: Ht 160 cm; Wt 77.1 kg
[~2021-05-26 17:59] MED LIST changes: +ASPI-1749 PO; -ASPI-1884 PO; -DULO60EC PO; +DULO60EC1 PO; +METH1ADH TP; +MIRT-91 PO; -MIRT15TA PO; -[UNRECOGNIZED DRUG - CODE] TP
[2021-05-26 18:09] VITALS: BP 139/78
--- NOTE | 2021-05-26 19:25 | NUR ---
DR. BEDOLLA S/W PATIENT VIA PHONE AND PT STATED SHE WOULD RETURN IN THE MORNING TO BE SEEN. PATIENT LEFT WITHOUT BEING SEEN BY DR. BEDOLLA. NO FURTHER CARE PROVIDED FOR PATIENT.
== END 2021-05-26 19:25 | disposition left against medical advice (07) ==
LOC: MED 17:59
DX: R68.83 Chills (without fever) (principal); R53.1 Weakness; R43.8 Other disturbances of smell and taste; R07.1 Chest pain on breathing; Z53.21 Procedure and treatment not carried out due to patient leaving prior to being seen by health care provider

== ENCOUNTER 2021-05-27 08:17 | Emergency (ER) | payer OTHER, MEDICAID, SELFPAY ==
[~2021-05-27] VITALS: Ht 160 cm; Wt 77.1 kg
[2021-05-27 08:27] VITALS: BP 130/103
--- NOTE | 2021-05-27 08:31 | NUR ---
PT TO AWAIT IN TENT
--- NOTE | 2021-05-27 08:35 | NUR ---
DR MUÑOZ EXAMINING PT IN THE TENT
--- NOTE | 2021-05-27 09:08 | NUR ---
MARQUITA, NOVEL AND FLU SWABS COLLECTED AND SENT TO LAB
[2021-05-27 10:13] VITALS: BP 130/103
--- NOTE | 2021-05-27 10:13 | NUR ---
Patient left without discharge instructions.Patient discharged with v/s stable. Patient alert, oriented and verbalized understanding. Wheelchair to car. All questions addressed prior to discharge. ID band removed. Patient advised to follow up with PMD Opportunity to ask questions provided and answered.
== END 2021-05-27 10:13 | disposition home or self-care (01) ==
LOC: MED 08:17
DX: B34.9 Viral infection, unspecified (principal); Z20.822 Contact with and (suspected) exposure to COVID-19; J44.9 Chronic obstructive pulmonary disease, unspecified; Z86.73 Personal history of transient ischemic attack (TIA), and cerebral infarction without residual deficits; Z86.39 Personal history of other endocrine, nutritional and metabolic disease; Z87.891 Personal history of nicotine dependence; Z79.899 Other long term (current) drug therapy; Z79.51 Long term (current) use of inhaled steroids; Z79.82 Long term (current) use of aspirin
CPT/HCPCS: 87426; 87804; 99283; U0003

== ENCOUNTER 2021-07-15 11:43 | Emergency (ER) | payer OTHER, MEDICAID, SELFPAY ==
[~2021-07-15] VITALS: Ht 160 cm; Wt 70.3 kg
[2021-07-15 12:00] VITALS: BP 141/67
--- NOTE | 2021-07-15 14:50 | NUR ---
Patient discharged with v/s stable. Written and verbal after care instructions ABOUT SHOULDER PAIN given and explained. Patient verbalized understanding. Wheel Chair Assisted with to car. All questions addressed prior to discharge. Advised to follow up with PMD.
== END 2021-07-15 14:50 | disposition home or self-care (01) ==
LOC: MED 11:43
DX: M25.512 Pain in left shoulder (principal); J44.9 Chronic obstructive pulmonary disease, unspecified; E07.9 Disorder of thyroid, unspecified; Z86.73 Personal history of transient ischemic attack (TIA), and cerebral infarction without residual deficits
CPT/HCPCS: 73030; 99283

== ENCOUNTER 2021-08-24 02:35 | Emergency (ER) | payer OTHER, MEDICAID, SELFPAY ==
[~2021-08-24] VITALS: Ht 165.1 cm; Wt 81.6 kg
[2021-08-24 02:40] VITALS: BP 124/72
[2021-08-24 03:28] LABS: BASOPHILS # (AUTO) 0.1 K/uL (0.00-0.22); BASOPHILS % (AUTO) 1.1 % (0.0-2.0); EOSINOPHILS # (AUTO) 0.2 K/uL (0-0.4); EOSINOPHILS % (AUTO) 3.3 % (0.0-4.0); HEMATOCRIT 36.9 % (36-48); HEMOGLOBIN 12.5 g/dL (12.0-16.0); LYMPHOCYTES # (AUTO) 2.1 K/uL (2.5-16.5); LYMPHOCYTES % (AUTO) 37.8 % (20.5-51.1); MEAN CORPUSCULAR HEMOGLOBIN 32 pg (27-31); MEAN CORPUSCULAR HGB CONC 34 g/dL (33-37); MEAN CORPUSCULAR VOLUME 94.4 fL (80-94); MONOCYTES # (AUTO) 0.4 K/uL (0.8-1.0); MONOCYTES % (AUTO) 6.4 % (1.7-9.3); NEUTROPHILS # (AUTO) 2.9 K/uL (1.8-7.7); NEUTROPHILS % (AUTO) 51.4 % (42.2-75.2); PLATELET COUNT (AUTO) 285 K/uL (140-450); RED BLOOD CELL COUNT(AUTO) 3.91 MIL/uL (4.20-5.40); RED CELL DISTRIBUTION WIDTH 13.4 % (11.6-13.7); WHITE BLOOD COUNT (AUTO) 5.7 K/uL (4.8-10.8)
--- NOTE | 2021-08-24 03:30 | NUR ---
small amount of urine obtained. encouraged to drink water, assisted pt at bedside.
[2021-08-24 03:51] LABS: ALBUMIN 3.8 g/dL (3.4-5.0); ANION GAP 12.2 (8-16); CARBON DIOXIDE 29.3 mmol/L (21-32); CREATININE 0.8 mg/dL (0.6-1.3); POTASSIUM 3.5 mmol/L (3.5-5.1); TOTAL BILIRUBIN 0.8 mg/dL (0.0-1.0)
[2021-08-24] MEDS ORDERED: cefTRIAXone 1,000 MG VIAL ONE (04:29)
--- NOTE | 2021-08-24 04:51 | NUR ---
CALLED [facility] PER GARRET THAO. NO ANSWER GARRET THAO AWARE
[2021-08-24] MEDS ORDERED: NITR100C7 PO (04:53)
--- NOTE | 2021-08-24 05:14 | NUR ---
attempted to call [facility] with no answer. patient needs tx set up as pt is d/c.
--- NOTE | 2021-08-24 05:16 | NUR ---
informed pt on dc in am. will call facility to set up transport at 630. pt resting in bed with siderails up
--- NOTE | 2021-08-24 06:01 | NUR ---
UNABLE TO FIND TRANSPORT BACK TO FACILITY
--- NOTE | 2021-08-24 06:03 | NUR ---
called Mar[facility] Baez for transfer back to facility. no answer will try again in 30 mins
--- NOTE | 2021-08-24 06:29 | NUR ---
called pts , left a voicemail regarding transportion issues . notifed charge nurse
--- NOTE | 2021-08-24 06:48 | NUR ---
assisted pt to bathroom via wheelchair.
--- NOTE | 2021-08-24 07:20 | NUR ---
REPORT RECEIVED FROM RAMESH REDDING.
--- NOTE | 2021-08-24 08:19 | NUR ---
report given to nurse Gwen. [facility] called eta-5-45 mins
[2021-08-24 08:44] VITALS: BP 129/57
--- NOTE | 2021-08-24 08:47 | NUR ---
Patient discharged with v/s stable. Written and verbal after care instructions given and explained. Patient alert, oriented and verbalized understanding of instructions. Wheel Chair Assisted with to car. All questions addressed prior to discharge. ID band removed. Patient advised to follow up with PMD. Rx of macrobid given. Patient educated on indication of medication including possible reaction and side effects. Opportunity to ask questions provided and answered.
== END 2021-08-24 08:44 | disposition home or self-care (01) ==
LOC: MED 02:35
DX: R53.1 Weakness (principal); N39.0 Urinary tract infection, site not specified; J44.9 Chronic obstructive pulmonary disease, unspecified; E07.9 Disorder of thyroid, unspecified; Z79.899 Other long term (current) drug therapy; Z79.82 Long term (current) use of aspirin
CPT/HCPCS: 36415; 80053; 84484; 85025; 87040; 96365; 99285; J0696

== ENCOUNTER 2022-08-29 06:20 | Inpatient (IN) | payer OTHER, MEDICAID ==
[~2022-08-29] VITALS: Ht 160 cm; Wt 90.7 kg
[~2022-08-29 06:20] MED LIST changes: +LURA20TA PO; +NITR100C7 PO
[2022-08-29 06:24] VITALS: BP 170/96
--- NOTE | 2022-08-29 06:24 | NUR ---
PT [facility] BED 1
[2022-08-29] MEDS ORDERED: ONDANSETRON 4 MG/2 ML VIAL ONE (06:34)
[2022-08-29] MEDS ORDERED: ONDANSETRON 4 MG/2 ML VIAL IVP ONE (06:35)
[2022-08-29] MEDS ORDERED: ALBUTEROL 0.083% 2.5 MG/3 ML NEBU INH ONE (06:35)
[2022-08-29] MEDS ORDERED: IPRATROPIUM 0.02% 0.5 MG/2.5 ML NEBU INH ONE (06:35)
[2022-08-29] MEDS ORDERED: methylPREDNISolone SS 125 MG/2 ML VIAL IVP ONE (06:35)
--- NOTE | 2022-08-29 06:36 | NUR ---
PT PLACED ON BIPAP BY RT
[2022-08-29] MEDS ORDERED: NACL 0.9% 1,000 ML IV ONE (06:55)
[2022-08-29] MEDS ORDERED: LORazepam 2 MG/ML VIAL IVP ONE (06:55)
--- NOTE | 2022-08-29 07:07 | NUR ---
RT AT BEDSIDE. PT C/O CANNOT BREATHE WITH BIPAP ON. BUT WILL ATTEMPT TO PUT IT ON AND DID VOCALIZE THAT PT DOES NOT WANT TO BE TUBED BUT IS REMINDED THAT THE DOCTOR WILL SPEAK WITH THE PATIENT REGARDING INTUBATION IF NEEDED.
--- NOTE | 2022-08-29 07:15 | NUR ---
Pt report given to ANTONIO BARBOZA. Transfer of care at this time.
--- NOTE | 2022-08-29 08:51 | NUR ---
TRIED BEDPAN, BUT NO URINE. APPLE JUICE OFFERED TO PT PER REQUESTS.
--- NOTE | 2022-08-29 09:08 | NUR ---
BEDSIDE COMMONDO SETUP. PT GOT UP THE BED AND HAD PEE. URINE SAMPLE COLLECTED AND SENT.
[2022-08-29 10:06] LABS: APPEARANCE,URINE CLEAR (CLEAR); BILIRUBIN,URINE NEGATIVE (NEGATIVE); BLOOD, URINE NEGATIVE (NEGATIVE); COLOR,URINE YELLOW (YELLOW); LEUKOCYTE ESTERASE ,URINE 1+ (NEGATIVE); NITRITE, URINE NEGATIVE (NEGATIVE); PH,URINE 5.5 (5.0-9.0); UGLUCOSE NEGATIVE (NEGATIVE)
[2022-08-29 10:18] LABS: RBC,URINE 0-5 /HPF (0-5)
[2022-08-29 11:20] LABS: BASOPHILS % (AUTO) 0.1 % (0.0-2.0); HEMATOCRIT 34.3 % (36-48); HEMOGLOBIN 11.7 g/dL (12.0-16.0); LYMPHOCYTES # (AUTO) 0.3 K/uL (2.5-16.5); LYMPHOCYTES % (AUTO) 2.6 % (20.5-51.1); MEAN CORPUSCULAR HEMOGLOBIN 31 pg (27-31); MEAN CORPUSCULAR HGB CONC 34 g/dL (33-37); MEAN CORPUSCULAR VOLUME 91.6 fL (80-94); MONOCYTES # (AUTO) 0.7 K/uL (0.8-1.0); MONOCYTES % (AUTO) 5.5 % (1.7-9.3); NEUTROPHILS # (AUTO) 11.7 K/uL (1.8-7.7); NEUTROPHILS % (AUTO) 91.8 % (42.2-75.2); PLATELET COUNT (AUTO) 342 K/uL (140-450); RED BLOOD CELL COUNT(AUTO) 3.75 MIL/uL (4.20-5.40); RED CELL DISTRIBUTION WIDTH 12.9 % (11.6-13.7); WHITE BLOOD COUNT (AUTO) 12.7 K/uL (4.8-10.8)
[2022-08-29] MEDS ORDERED: cefTRIAXone 2,000 MG in DEXTROSE 5% 100 ML IV ONE (11:25)
[2022-08-29 11:34] LABS: ALBUMIN 3.8 g/dL (3.4-5.0); ANION GAP 10.9 (8-16); CARBON DIOXIDE 29.3 mmol/L (21-32); POTASSIUM 3.2 mmol/L (3.5-5.1); TOTAL BILIRUBIN 1.1 mg/dL (0.0-1.0)
[2022-08-29] MEDS ORDERED: cefTRIAXone 2,000 MG VIAL ONE (11:44)
[2022-08-29] MEDS ORDERED: ACETAMINOPHEN 325 MG TAB PO PRN (12:35)
[2022-08-29] MEDS ORDERED: INSULIN LISPRO SLIDING SCALE 100 UNITS/ML VIAL SUBQ PRN (12:35)
[2022-08-29] MEDS ORDERED: DOCUSATE SODIUM 100 MG GELCAP PO PRN (12:35)
[2022-08-29] MEDS ORDERED: ZOLPIDEM 10 MG TAB PO PRN (12:35)
[2022-08-29] MEDS ORDERED: ONDANSETRON 4 MG/2 ML VIAL IVP PRN (12:35)
[2022-08-29] MEDS ORDERED: DEXTROSE 50% 50 ML SYR IVP PRN (12:35)
[2022-08-29] MEDS ORDERED: MAG SULF 2000 MG/WATER PREMIX 50 ML IV PRN (12:35)
[2022-08-29] MEDS ORDERED: LORazepam 2 MG/ML VIAL IVP PRN (12:35)
[2022-08-29] MEDS ORDERED: POTASSIUM CHLORIDE 10 MEQ TABER PO PRN (12:35)
--- NOTE | 2022-08-29 13:00 | NUR ---
PT WAS TAKEN TO CT .
--- NOTE | 2022-08-29 13:43 | NUR ---
DR. LOPEZ WAS CALLED AND NOTIFIED [facility]. TROP [phone] AND [phone].
[2022-08-29] MEDS ORDERED: AZITHROMYCIN 500 MG INJ VIAL IV ONE (13:45)
[2022-08-29] MEDS: AZITHROMYCIN 500 MG in DEXTROSE 5% 250 ML IV SCH (13:49)
[2022-08-29] MEDS: ALBUTEROL 0.083% 2.5 MG/3 ML NEBU INH SCH ×2 (14:34→20:56)
[2022-08-29] MEDS: BLOOD GLUCOSE MONITORING 1 DEV DEV FS SCH ×2 (16:59→20:21)
--- NOTE | 2022-08-29 17:00 | NUR ---
PATIENT HAS BEEN SCREENED AND CATEGORIZED MODERATE NUTRITION RISK. PATIENT WILL BE SEEN WITHIN 3-5 DAYS OF ADMISSION. REVIEWED BY WANDA ATKINS RD
--- NOTE | 2022-08-29 18:28 | NUR ---
PT WENT BATHROOM BY HER OWN WITHOUT ASSISTANCE. NO S/S OF SOB.
--- NOTE | 2022-08-29 19:30 | NUR ---
Patient received on bed lying comfortably and awake. Alert and oriented x4. No acute distress. No complaints of pain or discomfort. Respirations even and unlabored.
--- NOTE | 2022-08-29 19:44 | NUR ---
Patient stated she takes Zyprexa 20 mg daily as one of her routine medications. Called Dr. Easley and notified her. Dr. Easley is aware and will add the medication to the patient's scheduled medication.
[2022-08-29] MEDS ORDERED: methylPREDNISolone SS 40 MG/ML VIAL ONE (19:54)
[2022-08-29] MEDS ORDERED: ATORVASTATIN 20 MG TAB ONE (19:54)
[2022-08-29] MEDS ORDERED: DIVALPROEX 500 MG TABEC PO ONE (19:54)
[2022-08-29] MEDS: methylPREDNISolone SS 40 MG/ML VIAL IVP SCH (20:12)
[2022-08-29] MEDS: DIVALPROEX 500 MG TABEC PO SCH (20:13)
[2022-08-29] MEDS: ATORVASTATIN 20 MG TAB PO SCH (20:13)
[2022-08-29] MEDS: MORPHINE SULFATE 2 MG/ML SYR IVP PRN (20:17)
[2022-08-30] MEDS: MORPHINE SULFATE 2 MG/ML SYR IVP PRN ×5 (00:10→18:16)
[2022-08-30] MEDS: ALBUTEROL 0.083% 2.5 MG/3 ML NEBU INH SCH ×4 (01:13→19:32)
[2022-08-30] MEDS: methylPREDNISolone SS 40 MG/ML VIAL IVP SCH ×3 (05:18→21:17)
[2022-08-30] MEDS: LEVOTHYROXINE 0.05 MG TAB PO SCH (05:58)
[2022-08-30 07:43] LABS: HEMOGLOBIN 11.6 g/dL (12.0-16.0); LYMPHOCYTES # (AUTO) 1.2 K/uL (2.5-16.5); LYMPHOCYTES % (AUTO) 5.8 % (20.5-51.1); MEAN CORPUSCULAR HEMOGLOBIN 32 pg (27-31); MEAN CORPUSCULAR HGB CONC 34 g/dL (33-37); MONOCYTES # (AUTO) 0.7 K/uL (0.8-1.0); MONOCYTES % (AUTO) 3.4 % (1.7-9.3); NEUTROPHILS # (AUTO) 19.1 K/uL (1.8-7.7); NEUTROPHILS % (AUTO) 90.8 % (42.2-75.2); PLATELET COUNT (AUTO) 336 K/uL (140-450); RED BLOOD CELL COUNT(AUTO) 3.66 MIL/uL (4.20-5.40); RED CELL DISTRIBUTION WIDTH 13.1 % (11.6-13.7)
--- NOTE | 2022-08-30 08:20 | NUR ---
pt a/o times 4, sob when ambulated to restroom, o2 sat 95% at 2 l/m via nc, sr up times 2 c/o hips pain due to ms
[2022-08-30] MEDS ORDERED: ASPIRIN 81 MG TAB.CHEW PO SCH (09:00)
[2022-08-30] MEDS: BLOOD GLUCOSE MONITORING 1 DEV DEV FS SCH ×4 (09:07→21:19)
[2022-08-30] MEDS ORDERED: cefTRIAXone 1,000 MG VIAL ONE (09:09)
--- NOTE | 2022-08-30 09:25 | NUR ---
medicated for hips pain as ordered 03/01
[2022-08-30 09:31] LABS: CARBON DIOXIDE 29.6 mmol/L (21-32); CREATININE 0.7 mg/dL (0.6-1.3); POTASSIUM 3.6 mmol/L (3.5-5.1)
[2022-08-30 09:37] VITALS: BP 125/70
--- NOTE | 2022-08-30 09:37 | NUR ---
RECEIVED PT FROM [employer] FOUNDER PT IS AWAKE, ALERT AND ORIENTED, AMBULATED TO THE BED, ON O2 2L NC, IV LINE NOTED ON THE LEFT AC G. 20 WITH ROCEPHIN INFUSING, NO SIGN OF DISTRESS NOTED AND WILL CONTINUE TO MONITOR PT.
--- NOTE | 2022-08-30 09:45 | NUR ---
pt transferred to 104a, report given to JABARI Jenkins. pt reports wei hip pain 07/01 after morphine, o2 sat 95% at 2 l/m via nc, sr up times 2
--- NOTE | 2022-08-30 10:40 | NUR ---
PT WAS ASSISTED TO THE BATHROOM
[2022-08-30] MEDS: buPROPion 100 MG TAB PO SCH (11:38)
[2022-08-30] MEDS: DULoxetine 30 MG CAPDR PO SCH (11:39)
[2022-08-30] MEDS: ASPIRIN 81 MG TAB.CHEW PO SCH (11:39)
[2022-08-30] MEDS: DIVALPROEX 500 MG TABEC PO SCH ×2 (11:39→21:05)
[2022-08-30] MEDS: AZITHROMYCIN 500 MG in DEXTROSE 5% 250 ML IV SCH (12:51)
--- NOTE | 2022-08-30 15:56 | NUR ---
RECEIVED A CALL FROM DR. VALLES AND GAVE A TELEPHONE ORDER TO CONTINUE PT'S ZYPREXA FOR 10MG AT 1500 AND 10MG FOR 2000H, ORDER VERIFIED.
[2022-08-30 16:00] VITALS: BP 143/66
--- NOTE | 2022-08-30 19:06 | NUR ---
ENDORSED PT TO NIGHT RN FOR CONTINUITY OF CARE, PT IS STABLE AT THIS TIME
--- NOTE | 2022-08-30 19:07 | NUR ---
RECEIVED PT FROM MORNING NURSE. PT IS AOX4, AMBULATORY, ABLE TO VERBALIZE NEEDS AND ABLE TO FOLLOW COMMANDS. PT IS ON 3L NC AND ON REGULAR DIET. PT HAS IV ON LEFT AC GAUGE 20 SALINE LOCK. PT SKIN IS INTACT. NO COMPLAIN OF PAIN AT THIS TIME. NO S/S OF RESPIRATORY DISTRESS NOTED. ALL SAFETY MEASURES IMPLEMENTED. BED IN LOW POSITION, BED WHEELS ON LOCK AND CALL LIGHT WITHIN REACH.
[2022-08-30 20:00] VITALS: BP 117/63
[2022-08-30] MEDS: OLANZapine 5 MG TAB PO SCH (20:00)
[2022-08-30] MEDS: ATORVASTATIN 20 MG TAB PO SCH (21:05)
--- NOTE | 2022-08-30 21:19 | NUR ---
ALL SCHEDULED AND PRESCRIBED MEDICATION WAS GIVEN TO PT. PT BLOOD GLUCOSE IS 130. NO INSULIN COVERAGE NEEDED. ALL SAFETY MEASURES IMPLEMENTED. BED IN LOW POSITION, BED WHEELS ON LOCK AND CALL LIGHT WITHIN REACH.
[2022-08-31] VITALS: BP 124/57
--- NOTE | 2022-08-31 | NUR ---
CHANGED PT'S BED LINENS AND GOWN DUE TO PT ACCIDENTALLY URINATE TO HER BED. FIX PT PULSE OXIMETER AND TELE BOX. NO S/S OF RESPIRATORY DISTRESS NOTED. ALL SAFETY MEASURES IMPLEMENTED. BED IN LOW POSITION, BED WHEELS ON LOCK AND CALL LIGHT WITHIN REACH.
[2022-08-31] MEDS: ALBUTEROL 0.083% 2.5 MG/3 ML NEBU INH SCH ×4 (01:00→19:36)
--- NOTE | 2022-08-31 02:00 | NUR ---
PT IS ON SLEEP. CHEST RISE AND FALL SYMMETRICALLY NOTED. RESPIRATION IS EVEN AND UNLABORED. NO S/S OF RESPIRATORY DISTRESS NOTED. ALL SAFETY MEASURES IMPLEMENTED. BED IN LOW POSITION, BED WHEELS ON LOCK AND CALL LIGHT WITHIN REACH.
[2022-08-31 04:00] VITALS: BP 114/53
--- NOTE | 2022-08-31 04:00 | NUR ---
CHECKED PT STILL ON SLEEP. CHEST RISE AND FALL SYMMETRICALLY NOTED. RESPIRATION IS EVEN AND UNLABORED. NO S/S OF RESPIRATORY DISTRESS NOTED. ALL SAFETY MEASURES IMPLEMENTED. BED IN LOW POSITION, BED WHEELS ON LOCK AND CALL LIGHT WITHIN REACH.
[2022-08-31] MEDS: methylPREDNISolone SS 40 MG/ML VIAL IVP SCH ×3 (05:31→20:21)
[2022-08-31] MEDS: LEVOTHYROXINE 0.05 MG TAB PO SCH (05:31)
[2022-08-31 06:33] LABS: BASOPHILS % (AUTO) 0.1 % (0.0-2.0); HEMATOCRIT 35.3 % (36-48); HEMOGLOBIN 11.9 g/dL (12.0-16.0); LYMPHOCYTES # (AUTO) 1.5 K/uL (2.5-16.5); MEAN CORPUSCULAR HEMOGLOBIN 32 pg (27-31); MEAN CORPUSCULAR HGB CONC 34 g/dL (33-37); MEAN CORPUSCULAR VOLUME 93.9 fL (80-94); MONOCYTES # (AUTO) 0.8 K/uL (0.8-1.0); MONOCYTES % (AUTO) 4.5 % (1.7-9.3); NEUTROPHILS # (AUTO) 16.2 K/uL (1.8-7.7); PLATELET COUNT (AUTO) 353 K/uL (140-450); RED BLOOD CELL COUNT(AUTO) 3.76 MIL/uL (4.20-5.40); WHITE BLOOD COUNT (AUTO) 18.5 K/uL (4.8-10.8)
[2022-08-31] MEDS: BLOOD GLUCOSE MONITORING 1 DEV DEV FS SCH ×4 (06:33→21:00)
--- NOTE | 2022-08-31 06:33 | NUR ---
PT BLOOD GLUCOSE IS 124. NO INSULIN COVERAGE NEEDED.
[2022-08-31 06:58] LABS: ANION GAP 12.3 (8-16); CARBON DIOXIDE 29.1 mmol/L (21-32); CREATININE 0.8 mg/dL (0.6-1.3); POTASSIUM 3.4 mmol/L (3.5-5.1)
--- NOTE | 2022-08-31 07:17 | NUR ---
PT IS STABLE. ENDORSED PT TO MORNING SHIFT NURSE FOR CONTINUITY OF CARE.
[2022-08-31 07:28] LABS: NEUTROPHILS % (AUTO) 87.4 % (42.2-75.2)
--- NOTE | 2022-08-31 07:35 | NUR ---
GOT REPORT FROM THE NIGHT NURSE, PT SLEEPING, NO SOB NOTED.[id number]
[2022-08-31 08:00] VITALS: BP 116/67
[2022-08-31] MEDS: buPROPion 100 MG TAB PO SCH (08:19)
[2022-08-31] MEDS: ASPIRIN 81 MG TAB.CHEW PO SCH (08:19)
[2022-08-31] MEDS: DULoxetine 30 MG CAPDR PO SCH (08:19)
[2022-08-31] MEDS: DIVALPROEX 500 MG TABEC PO SCH ×2 (08:19→20:20)
[2022-08-31 12:00] VITALS: BP 144/71
[2022-08-31] MEDS: AZITHROMYCIN 500 MG in DEXTROSE 5% 250 ML IV SCH (12:12)
[2022-08-31] MEDS: MORPHINE SULFATE 2 MG/ML SYR IVP PRN ×3 (13:05→21:44)
[2022-08-31] MEDS ORDERED: OLANZapine 5 MG TAB PO SCH (15:00)
[2022-08-31 17:00] VITALS: BP 149/79
--- NOTE | 2022-08-31 19:03 | NUR ---
GAVE REPORT TO THE NIGHT NURSE.[id number]
--- NOTE | 2022-08-31 19:04 | NUR ---
RECEIVED PT FROM MORNING NURSE. PT IS AOX4, AMBULATORY, ABLE TO VERBALIZE NEEDS AND ABLE TO FOLLOW COMMANDS. PT IS ON 3L NC AND ON REGULAR DIET. PT HAS IV ON RIGHT FOREARM GAUGE 22 SALINE LOCK. PT SKIN IS INTACT. NO COMPLAIN OF PAIN AT THIS TIME. NO S/S OF RESPIRATORY DISTRESS NOTED. ALL SAFETY MEASURES IMPLEMENTED. BED IN LOW POSITION, BED WHEELS ON LOCK AND CALL LIGHT WITHIN REACH.
[2022-08-31 20:00] VITALS: BP 130/67
[2022-08-31] MEDS: ATORVASTATIN 20 MG TAB PO SCH (20:20)
[2022-08-31] MEDS: OLANZapine 5 MG TAB PO SCH (20:20)
--- NOTE | 2022-08-31 20:23 | NUR ---
ALL PRESCRIBED AND SCHEDULED MEDICATION WAS GIVEN TO PT PER MD ORDER. NO S/S OF RESPIRATORY DISTRESS NOTED. ALL SAFETY MEASURES IMPLEMENTED. BED IN LOW POSITION, BED WHEELS ON LOCK AND CALL LIGHT WITHIN REACH.
--- NOTE | 2022-08-31 20:38 | NUR ---
PT BLOOD GLUCOSE IS 156. HUMALOG INSULIN 2 UNITS WAS GIVEN TO PT. NO S/S OF RESPIRATORY DISTRESS NOTED. ALL SAFETY MEASURES IMPLEMENTED. BED IN LOW POSITION, BED WHEELS ON LOCK AND CALL LIGHT WITHIN REACH.
--- NOTE | 2022-08-31 21:44 | NUR ---
PT WAS GIVEN PRN PAIN MEDICATION DUE TO GENERALIZED PAIN WITH PAIN SCALE OF 8/10. NO S/S OF RESPIRATORY DISTRESS NOTED. ALL SAFETY MEASURES IMPLEMENTED. BED IN LOW POSITION, BED WHEELS ON LOCK AND CALL LIGHT WITHIN REACH.
[2022-09-01] VITALS: BP 144/98
--- NOTE | 2022-09-01 | NUR ---
PT IS SLEEPING. CHEST RISE AND FALL SYMMETRICALLY NOTED. RESPIRATION IS EVEN AND UNLABORED. NO S/S RESPIRATORY DISTRESS NOTED. ALL SAFETY MEASURES IMPLEMENTED. BED IN LOW POSITION, BED WHEELS ON LOCK AND CALL LIGHT WITHIN REACH.
[2022-09-01] MEDS: ALBUTEROL 0.083% 2.5 MG/3 ML NEBU INH SCH ×3 (00:30→07:46)
--- NOTE | 2022-09-01 02:00 | NUR ---
CHECKED THE PT STILL SLEEPING. CHEST RISE AND FALL SYMMETRICALLY NOTED. RESPIRATION IS EVEN AND UNLABORED. NO S/S RESPIRATORY DISTRESS NOTED. ALL SAFETY MEASURES IMPLEMENTED. BED IN LOW POSITION, BED WHEELS ON LOCK AND CALL LIGHT WITHIN REACH.
[2022-09-01] MEDS: MORPHINE SULFATE 2 MG/ML SYR IVP PRN ×2 (03:41→10:15)
[2022-09-01 04:00] VITALS: BP 148/65
[2022-09-01] MEDS: methylPREDNISolone SS 40 MG/ML VIAL IVP SCH (05:32)
[2022-09-01] MEDS: LEVOTHYROXINE 0.05 MG TAB PO SCH (05:33)
[2022-09-01] MEDS: BLOOD GLUCOSE MONITORING 1 DEV DEV FS SCH ×2 (06:32→11:47)
--- NOTE | 2022-09-01 06:32 | NUR ---
PT BLOOD GLUCOSE IS 137. NO INSULIN COVERAGE NEEDED.
[2022-09-01 07:06] LABS: BASOPHILS % (AUTO) 0.1 % (0.0-2.0); EOSINOPHILS % (AUTO) 0.1 % (0.0-4.0); HEMATOCRIT 35.4 % (36-48); HEMOGLOBIN 11.7 g/dL (12.0-16.0); LYMPHOCYTES % (AUTO) 9.2 % (20.5-51.1); MEAN CORPUSCULAR HEMOGLOBIN 31 pg (27-31); MEAN CORPUSCULAR HGB CONC 33 g/dL (33-37); MEAN CORPUSCULAR VOLUME 93.1 fL (80-94); MONOCYTES # (AUTO) 0.5 K/uL (0.8-1.0); MONOCYTES % (AUTO) 4.5 % (1.7-9.3); NEUTROPHILS # (AUTO) 9.6 K/uL (1.8-7.7); NEUTROPHILS % (AUTO) 86.1 % (42.2-75.2); PLATELET COUNT (AUTO) 329 K/uL (140-450); RED CELL DISTRIBUTION WIDTH 13.1 % (11.6-13.7); WHITE BLOOD COUNT (AUTO) 11.1 K/uL (4.8-10.8)
[2022-09-01 07:15] LABS: ANION GAP 11.3 (8-16); CARBON DIOXIDE 30.4 mmol/L (21-32); CREATININE 0.7 mg/dL (0.6-1.3); POTASSIUM 3.7 mmol/L (3.5-5.1)
--- NOTE | 2022-09-01 07:20 | NUR ---
RECEIVED REPORT BY NIGHT NURSE DIANE FOR CONTINUITY OF CARE. INITIAL ASSESSMENT DONE. ON CONT. O2 @ 3L/MIN VIA N/C. RESP EVEN AND UNLABORED. IVF SITE INTACT. CALL LIGHT KEPT WITHIN REACH. WILL CONTINUE TO MONITOR.
--- NOTE | 2022-09-01 07:25 | NUR ---
PT IS STABLE. ENDORSED PT TO MORNING NURSE FOR CONTINUITY OF CARE.
[2022-09-01 08:00] VITALS: BP 137/62
[2022-09-01] MEDS: DULoxetine 30 MG CAPDR PO SCH (08:31)
--- NOTE | 2022-09-01 08:31 | NUR ---
IV ABT WAS GIVEN BY SUNNY BRABOZA. TOLERATING WELL.
[2022-09-01] MEDS: DIVALPROEX 500 MG TABEC PO SCH (08:33)
[2022-09-01] MEDS: ASPIRIN 81 MG TAB.CHEW PO SCH (08:33)
--- NOTE | 2022-09-01 08:33 | NUR ---
SCHEDULED PO MEDICATIONS GIVEN. TOLERATING WELL. PT REFUSED WELLBUTRIN, PER PT MAKES HER STOMACH ACHE. EXPLAIN EXPLAIN RISK AND BENEFITS BUT STILL REFUSED.
[2022-09-01] MEDS: buPROPion 100 MG TAB PO SCH (08:41)
[2022-09-01] MEDS ORDERED: AZIT250T4 PO (10:35)
[2022-09-01] MEDS ORDERED: PRED10TA5 PO (10:38)
--- NOTE | 2022-09-01 11:36 | NUR ---
CALLED [facility]. REPORT GIVEN TO SHANNON. TRANSPORTATION ARRANGE. ETA 12:00.
--- NOTE | 2022-09-01 11:47 | NUR ---
BS CHECKED 131. NO COVERAGE NEEDED.
--- NOTE | 2022-09-01 11:47 | NUR ---
PT LEFT. DISCHARGE BACK TO [facility]. TRANSPORTED BY [facility] PER WHEELCHAIR. ALERT AND VERBALLY RESPONSIVE. ID AND IV BAND REMOVED. DISCHARGE PAPER WORKS SIGNED AND DISCUSS BY PT. SKIN INTACT. REMAINS STABLE. Addendum: 09/01/22 at 1216 by AMIRA DINERO LVN ENTER WRONG TIME.
--- NOTE | 2022-09-01 12:05 | NUR ---
PT LEFT. DISCHARGE BACK TO [facility]. TRANSPORTED BY [facility] PER WHEELCHAIR. ALERT AND VERBALLY RESPONSIVE. ID AND IV BAND REMOVED. DISCHARGE PAPER WORKS SIGNED AND DISCUSS BY PT. SKIN INTACT. REMAINS STABLE.
== END 2022-09-01 12:01 | disposition home or self-care (01) | DRG 871 ==
LOC: MED 06:20 → MTU 12:30
PROVIDERS: ADMIT Family Medicine; ATTEND Family Medicine
DX: A41.9 Sepsis, unspecified organism (principal); J18.9 Pneumonia, unspecified organism; J96.21 Acute and chronic respiratory failure with hypoxia; J44.1 Chronic obstructive pulmonary disease with (acute) exacerbation; I24.9 Acute ischemic heart disease, unspecified; R65.20 Severe sepsis without septic shock; E83.51 Hypocalcemia; D64.9 Anemia, unspecified; E87.6 Hypokalemia; R73.9 Hyperglycemia, unspecified; K21.9 Gastro-esophageal reflux disease without esophagitis; M19.90 Unspecified osteoarthritis, unspecified site; Z20.822 Contact with and (suspected) exposure to COVID-19; F32.9 Major depressive disorder, single episode, unspecified; G35 Multiple sclerosis; F20.9 Schizophrenia, unspecified; E03.9 Hypothyroidism, unspecified; Z87.891 Personal history of nicotine dependence; Z90.49 Acquired absence of other specified parts of digestive tract; Z86.73 Personal history of transient ischemic attack (TIA), and cerebral infarction without residual deficits; Z79.82 Long term (current) use of aspirin
CPT/HCPCS: 36415; 36600; 71045; 71275; 80048; 80053; 81001; 82803; 82948; 83605; 83735; 83880; 84484; 85025; 85379; 87040; 87081; 87086; 94640; 96361; 96365; 96375; 99285; J0456; J0696; J1644; J2060; J2270; J2405; J2920; J2930; J7060; J7613; J7644; Q0092; Q9967

== ENCOUNTER 2023-04-08 09:34 | Emergency (ER) | payer OTHER, MEDICAID ==
[~2023-04-08] VITALS: Ht 160 cm; Wt 84.9 kg
[~2023-04-08 09:34] MED LIST changes: +AZIT250T4 PO; +MIRT-120 PO; -MIRT-91 PO; +PRED10TA5 PO
[2023-04-08 09:50] VITALS: BP 117/62; PULSE 70; RESP 20; TEMP 97.7; O2SAT 95
[2023-04-08] MEDS ORDERED: oxyCODONE/APAP 5/325 MG 1 TAB TAB PO ONE (10:25)
[2023-04-08] MEDS ORDERED: SULF20OR PO (10:28)
[2023-04-08] MEDS ORDERED: METH4TAB1 PO (10:28)
== END 2023-04-08 10:39 | disposition home or self-care (01) ==
LOC: MED 09:34
DX: L03.317 Cellulitis of buttock (principal); B02.9 Zoster without complications; J45.909 Unspecified asthma, uncomplicated; J44.9 Chronic obstructive pulmonary disease, unspecified; E11.9 Type 2 diabetes mellitus without complications; E03.9 Hypothyroidism, unspecified; Z86.73 Personal history of transient ischemic attack (TIA), and cerebral infarction without residual deficits; Z79.4 Long term (current) use of insulin; Z79.899 Other long term (current) drug therapy
CPT/HCPCS: 99283

== ENCOUNTER 2023-08-07 22:36 | Emergency (ER) | payer OTHER, MEDICAID ==
[~2023-08-07] VITALS: Ht 162.6 cm; Wt 68.0 kg
[~2023-08-07 22:36] MED LIST changes: +METH4TAB1 PO; +SULF20OR PO
[2023-08-07 22:47] VITALS: BP 105/55; PULSE 65; RESP 22; TEMP 97.9; O2SAT 97
[2023-08-07 23:28] VITALS: O2SAT 95
[2023-08-07 23:58] LABS: BASOPHILS # (AUTO) 0.1 K/uL (0.00-0.22); BASOPHILS % (AUTO) 1.7 % (0.0-2.0); EOSINOPHILS # (AUTO) 0.1 K/uL (0-0.4); EOSINOPHILS % (AUTO) 2.8 % (0.0-4.0); HEMATOCRIT 35.5 % (36-48); HEMOGLOBIN 12.4 g/dL (12.0-16.0); LYMPHOCYTES # (AUTO) 2.6 K/uL (2.5-16.5); LYMPHOCYTES % (AUTO) 50.8 % (20.5-51.1); MEAN CORPUSCULAR HEMOGLOBIN 33 pg (27-31); MEAN CORPUSCULAR HGB CONC 35 g/dL (33-37); MEAN CORPUSCULAR VOLUME 95.1 fL (80-94); MONOCYTES # (AUTO) 0.4 K/uL (0.8-1.0); MONOCYTES % (AUTO) 7.9 % (1.7-9.3); NEUTROPHILS # (AUTO) 1.9 K/uL (1.8-7.7); NEUTROPHILS % (AUTO) 36.8 % (42.2-75.2); PLATELET COUNT (AUTO) 245 K/uL (140-450); RED BLOOD CELL COUNT(AUTO) 3.73 MIL/uL (4.20-5.40); RED CELL DISTRIBUTION WIDTH 13.3 % (11.6-13.7); WHITE BLOOD COUNT (AUTO) 5.2 K/uL (4.8-10.8)
[2023-08-08 00:23] LABS: FLU A ANTIGEN negative (NEGATIVE); FLU B ANTIGEN negative (NEGATIVE)
[2023-08-08 00:24] LABS: ALANINE AMINOTRANSFERASE 15 U/L (12-78); ALKALINE PHOSPHATASE 68 U/L (50-136); ANION GAP 11.9 (8-16); ASPARTATE AMINOTRANSFERASE 14 U/L (15-37); CALCIUM 8.6 mg/dL (8.5-10.1); CARBON DIOXIDE 29.1 mmol/L (21-32); CHLORIDE 106 mmol/L (98-107); CREATININE 0.8 mg/dL (0.6-1.3); GFR ARICAN-AMERICAN 93 mL/min (>90); GFR NON ARICAN-AMERICAN 77 mL/min (>90); GLUCOSE 89 mg/dL (74-106); SODIUM SERUM 144 mmol/L (136-145); TOTAL BILIRUBIN 0.9 mg/dL (0.0-1.0); TOTAL PROTEIN, SERUM 6.9 g/dL (6.4-8.2); UREA NITROGEN, BLOOD 16 mg/dL (7-18)
[2023-08-08] MEDS: POTASSIUM CHLORIDE 10 MEQ TABER PO ONE (01:47)
[2023-08-08 03:42] VITALS: BP 105/58; PULSE 59; RESP 15; TEMP 97.9; O2SAT 96
== END 2023-08-08 03:38 | disposition home or self-care (01) ==
LOC: MED 22:36
DX: E87.6 Hypokalemia (principal); R53.1 Weakness; Z20.822 Contact with and (suspected) exposure to COVID-19; J44.9 Chronic obstructive pulmonary disease, unspecified; E11.9 Type 2 diabetes mellitus without complications; E05.90 Thyrotoxicosis, unspecified without thyrotoxic crisis or storm; E78.5 Hyperlipidemia, unspecified; Z86.73 Personal history of transient ischemic attack (TIA), and cerebral infarction without residual deficits; Z79.899 Other long term (current) drug therapy; Z79.82 Long term (current) use of aspirin
CPT/HCPCS: 36415; 71045; 80053; 83605; 84484; 85025; 87426; 87804; 93005; 99285; Q0092